=== PATIENT | male | born 1940 | race Caucasian/White ===

== ENCOUNTER 2019-02-28 07:38 | Outpatient (RCR) | payer MEDICARE, SELFPAY ==
[2019-01-18 14:11] VITALS: BMI 33.1
== END 2019-04-13 12:31 | disposition home or self-care (01) ==
LOC: ANHWOC 07:38
PROVIDERS: PCP Family Medicine; Visit Provider Family Medicine
DX: I83.029 Varicose veins of left lower extremity with ulcer of unspecified site (principal)
CPT/HCPCS: 36415; 85610; 99212; G0463

== ENCOUNTER 2019-03-05 08:50 | Outpatient (RCR) | payer MEDICARE, SELFPAY | END 2019-03-05 23:59 | disposition home or self-care (01) | LOC: ANHAUDIO 08:50 | PROVIDERS: PCP Family Medicine; Visit Provider Family Medicine | DX: Z46.1 Encounter for fitting and adjustment of hearing aid (principal) | CPT/HCPCS: 92593 ==

== ENCOUNTER 2019-04-30 07:19 | Outpatient (RCR) | payer MEDICARE, SELFPAY ==
[2019-01-31 09:25] LABS: INR 2.6; Prothrombin Time 27.3 Seconds (11.1-14.7)
[2019-03-05 08:23] LABS: INR 3.4; Prothrombin Time 33.8 Seconds (11.1-14.7)
[2019-03-19 08:27] LABS: INR 2.5; Prothrombin Time 26.9 Seconds (11.1-14.7)
[2019-04-30 10:47] LABS: INR 3.9; Prothrombin Time 37.6 Seconds (11.1-14.7)
== END 2019-05-01 23:59 | disposition home or self-care (01) ==
LOC: ANHLAB 07:19
PROVIDERS: PCP Family Medicine; Visit Provider Family Medicine
DX: Z51.81 Encounter for therapeutic drug level monitoring (principal); Z79.01 Long term (current) use of anticoagulants
CPT/HCPCS: 36415; 85610

== ENCOUNTER → 2019-05-09 11:49 | Outpatient (CLI) | payer MEDICARE, SELFPAY ==
--- NOTE | ~2019-05-09 | XR_ITS ---
EXAMINATION: XR hand LT 2V DATE: 05/09/2019 12:08 INDICATION: Left hand joint pain. Positive LEATHA. TECHNIQUE: 2 views of left hand were obtained. COMPARISON: None. FINDINGS: Bone alignment is normal. No fracture. There is moderate osteoarthritis of first carpometac arpal joint and first interphalangeal joint and mild osteoarthritis of second through fifth proximal and distal interphalangeal joints. Vascular calcifications are noted. IMPRESSION: 1. Polyarticular osteoarthritis. Reviewed, dictated and finalized at location A. ZAG STITCHER
--- NOTE | ~2019-05-09 | XR_ITS ---
EXAMINATION: XR hand RT 2V DATE: 05/09/2019 12:08 INDICATION: Positive LEATHA TECHNIQUE: Posteroanterior and lateral views of the right hand were obtained. COMPARISON: None. FINDINGS: 5 mm ulnar minus variance. There is disruption of the first and second carpal arcs at the lunotriquet ral articulation where there is a widened joint space consistent with tear of the lunotriquetral liga ment. No fracture. Polyarticular osteoarthritis, severe at the lunocapitate articulation, moderate se verity at the triscaphe and first interphalangeal joints and mild at the wrist, first carpometacarpal and multiple metacarpophalangeal and interphalangeal joints. No erosions to suggest an inflammatory arthritis. Extensive vascular calcifications. IMPRESSION: 1. Polyarticular osteoarthritis, severe at the lunocapitate articulation likely secondary to tear of the lunotriquetral ligament with disruption of the arcs of the proximal carpal row. Reviewed, dictated and finalized at location A. DOZER PRESS OPERATOR IMPRESSION: 1. Polyarticular osteoarthritis, severe at the lunocapitate articulation likely secondary to tear of the lunotriquetral ligament with disruption of the arcs o f the proximal carpal row.
== END ==
PROVIDERS: PCP Family Medicine; Visit Provider Physician Assistant
DX: R76.8 Other specified abnormal immunological findings in serum (principal); J84.9 Interstitial pulmonary disease, unspecified; M15.9 Polyosteoarthritis, unspecified
CPT/HCPCS: 73120

== ENCOUNTER 2019-08-29 07:21 | Outpatient (RCR) | payer MEDICARE, SELFPAY ==
[2019-08-29 08:29] LABS: INR 1.3; Prothrombin Time 16.2 Seconds (11.1-14.7)
== END 2019-11-27 23:59 | disposition home or self-care (01) ==
LOC: ANHLAB 07:21
PROVIDERS: PCP Family Medicine; Visit Provider Family Medicine
DX: Z51.81 Encounter for therapeutic drug level monitoring (principal); I48.91 Unspecified atrial fibrillation; Z79.01 Long term (current) use of anticoagulants
CPT/HCPCS: 36415; 85610

== ENCOUNTER 2019-09-12 07:20 | Outpatient (CLI) | payer MEDICARE, SELFPAY ==
[2019-09-16 04:53] LABS: Red Blood Cell Folate >1000 ng/mL RBC (>280)
[2019-09-17 03:47] LABS: Alkaline Phosphatase 155 U/L (35-144); Macrohepatic Isoenzymes 0 % (<=0)
== END 2019-09-12 07:21 | disposition home or self-care (01) ==
PROVIDERS: PCP Family Medicine; Visit Provider Physician Assistant
DX: D75.89 Other specified diseases of blood and blood-forming organs (principal); R74.8 Abnormal levels of other serum enzymes
CPT/HCPCS: 36415; 82607; 82747; 84075; 84080

== ENCOUNTER 2019-12-10 07:28 | Outpatient (RCR) | payer MEDICARE, SELFPAY ==
[2019-09-11 07:51] LABS: Basophils Percent Auto 0.5 % (0.2-1.2); Eosinophils Absolute Auto 0.1 K/mm3 (0-0.3); Eosinophils Percent Auto 1.9 % (0-4.4); Hematocrit 38.3 % (42.0-52.0); Hemoglobin 12.1 g/dL (14.0-18.0); Immature Granulocyte Absolute 0.03 K/mm3 (0.00-0.031); Immature Granulocyte Percent A 0.5 % (0-0.5); Lymphocytes Absolute Auto 0.51 K/mm3 (0.9-3.2); Lymphocytes Percent Auto 8.9 % (18.3-44.2); Mean Corpuscular HGB Conc 31.6 g/dl (32-36); Mean Corpuscular Hemoglobin 32.6 pg (26-34); Mean Corpuscular Volume 103.2 fl (80-100); Mean Platelet Volume 9.5 fl (7.4-10.4); Monocytes Absolute Auto 0.7 K/mm3 (0.1-0.6); Monocytes Percent Auto 11.9 % (2.6-8.5); Neutrophils Absolute Auto 4.4 K/mm3 (1.3-6.7); Neutrophils Percent Auto 76.3 % (45.5-73.1); Platelet Count Result 178 k/mm3 (150-375); Red Blood Count 3.71 M/mm3 (4.6-6.20); Red Cell Distribution Width 15.1 % (11.5-14.5); White Blood Count 5.7 K/mm3 (4.5-10.0)
[2019-09-11 08:02] LABS: Alanine Aminotransferase 27 U/L (4-50); Albumin Level 3.9 g/dL (3.5-5.1); Alkaline Phosphatase 173 U/L (38-126); Aspartate Amino Transferase 46 U/L (17-59); Bilirubin,Total 0.8 mg/dL (0.2-1.3); Blood Urea Nitrogen 25 mg/dL (9-20); Calcium 9.1 mg/dL (8.4-10.2); Carbon Dioxide 30 mmol/L (22-30); Chloride 101 mmol/L (98-107); Cholesterol 98 mg/dL (0-200); Estimated Glomerular Filt Rate > 60; Glucose 109 mg/dL (75-110); HDL Direct 25 mg/dL; Hemoglobin A1C 6.9 % (<5.7); Potassium 4.6 mmol/L (3.4-5.0); Sodium 138 mmol/L (137-145); Triglycerides 79 mg/dL (<150)
[2019-09-11 08:13] LABS: LDL Cholesterol Direct 58 mg/dL
[2019-09-11 08:31] LABS: Prostate Specific Antigen 0.2 ng/mL (< OR = 4.0)
[2019-09-11 12:00] LABS: Folic Acid > 20.0 ng/mL (2.76->20)
[2019-10-09 08:27] LABS: INR 1.4; Prothrombin Time 17.1 Seconds (11.1-14.7)
[2019-10-22 08:35] LABS: INR 1.6; Prothrombin Time 18.8 Seconds (11.1-14.7)
[2019-10-31 08:03] LABS: INR 1.7; Prothrombin Time 19.7 Seconds (11.1-14.7)
[2019-11-12 07:47] LABS: Prothrombin Time 22.3 Seconds (11.1-14.7)
[2019-12-10 08:21] LABS: INR 2.1; Prothrombin Time 22.9 Seconds (11.1-14.7)
== END 2019-12-10 23:59 | disposition home or self-care (01) ==
LOC: ANHLAB 07:28
PROVIDERS: Physician Assistant; PCP Family Medicine; Visit Provider Family Medicine
DX: Z51.81 Encounter for therapeutic drug level monitoring (principal); I48.91 Unspecified atrial fibrillation; E11.9 Type 2 diabetes mellitus without complications; E78.2 Mixed hyperlipidemia; E66.9 Obesity, unspecified; I10 Essential (primary) hypertension; Z79.01 Long term (current) use of anticoagulants; Z12.5 Encounter for screening for malignant neoplasm of prostate
CPT/HCPCS: 36415; 80053; 80061; 82607; 82746; 83036; 84153; 84443; 85025; 85610; G0103

== ENCOUNTER 2020-03-11 07:15 | Outpatient (RCR) | payer MEDICARE, SELFPAY ==
[2020-01-08 08:13] LABS: INR 1.9; Prothrombin Time 21.5 Seconds (11.1-14.7)
[2020-02-05 08:04] LABS: INR 2.4
[2020-03-11 08:03] LABS: INR 2.4; Prothrombin Time 26.6 Seconds (11.1-14.7)
== END 2020-04-07 23:59 | disposition home or self-care (01) ==
LOC: ANHLAB 07:15
PROVIDERS: PCP Family Medicine; Visit Provider Family Medicine
DX: Z51.81 Encounter for therapeutic drug level monitoring (principal); Z79.01 Long term (current) use of anticoagulants
CPT/HCPCS: 36415; 85610

== ENCOUNTER 2020-06-10 07:23 | Outpatient (RCR) | payer MEDICARE, SELFPAY ==
[2020-04-08 07:59] LABS: INR 2.5; Prothrombin Time 27.2 Seconds (11.1-14.7)
[2020-05-06 07:56] LABS: INR 2.1; Prothrombin Time 24.2 Seconds (11.1-14.7)
[2020-06-10 08:05] LABS: INR 2.1; Prothrombin Time 24.3 Seconds (11.1-14.7)
== END 2020-07-07 23:59 | disposition home or self-care (01) ==
LOC: ANHLAB 07:23
PROVIDERS: Family Provider Family Medicine; PCP Family Medicine; Visit Provider Family Medicine
DX: Z51.81 Encounter for therapeutic drug level monitoring (principal); Z79.01 Long term (current) use of anticoagulants
CPT/HCPCS: 36415; 85610

== ENCOUNTER 2020-09-09 07:14 | Outpatient (RCR) | payer MEDICARE, SELFPAY ==
[2020-07-08 08:35] LABS: INR 2.2; Prothrombin Time 25.1 Seconds (11.1-14.7)
[2020-08-05 08:23] LABS: INR 2.3; Prothrombin Time 25.5 Seconds (11.1-14.7)
[2020-09-09 08:24] LABS: INR 2.8; Prothrombin Time 30.1 Seconds (11.1-14.7)
== END 2020-10-06 23:59 | disposition home or self-care (01) ==
LOC: ANHLAB 07:14
PROVIDERS: PCP Family Medicine; Visit Provider Family Medicine
DX: Z51.81 Encounter for therapeutic drug level monitoring (principal); Z79.01 Long term (current) use of anticoagulants
CPT/HCPCS: 36415; 85610

== ENCOUNTER 2020-12-22 08:54 | Outpatient (RCR) | payer MEDICARE, SELFPAY ==
[2020-10-07 08:33] LABS: Prothrombin Time 30.3 Seconds (11.1-14.7)
[2020-11-04 08:35] LABS: INR 2.4; Prothrombin Time 25.6 Seconds (11.1-14.7)
[2020-12-08 07:56] LABS: Prothrombin Time 60.8 Seconds (11.1-14.7)
[2020-12-08 08:12] LABS: INR 7.5
[2020-12-09 08:01] LABS: Prothrombin Time 48.9 Seconds (11.1-14.7)
[2020-12-09 08:07] LABS: INR 5.6
[2020-12-10 08:26] LABS: INR 5.5
[2020-12-18 08:10] LABS: INR 1.3
[2020-12-19 10:23] LABS: INR 1.2; Prothrombin Time 15.1 Seconds (11.1-14.7)
[2020-12-22 09:39] LABS: INR 1.3; Prothrombin Time 15.7 Seconds (11.1-14.7)
== END 2021-01-05 23:59 | disposition home or self-care (01) ==
LOC: ANHLAB 08:54
PROVIDERS: PCP Family Medicine; Visit Provider Family Medicine
DX: Z51.81 Encounter for therapeutic drug level monitoring (principal); Z79.01 Long term (current) use of anticoagulants
CPT/HCPCS: 36415; 85610

== ENCOUNTER 2021-01-27 11:06 | Outpatient (CLI) | payer MEDICARE, SELFPAY ==
--- NOTE | ~2021-01-27 | XR_ITS ---
EXAMINATION: XR hip RT min 2V DATE: 01/27/2021 11:45 INDICATION: Right hip pain. TECHNIQUE: 2 views of right hip were obtained. COMPARISON: CT abdomen and pelvis 03/01/2019 FINDINGS: Bone alignment is normal. No fracture. There is serpiginous sclerosis in right femoral head , consistent with osteonecrosis. There is severe lumbar spondylosis. There is mild right hip osteoart hritis. There are dystrophic calcifications overlying the sacrum that are localized to the posterior subcutaneous fat on the prior CT. IMPRESSION: 1. Osteonecrosis of right femoral head. 2. Mild right hip osteoarthritis. Reviewed, dictated and finalized at location A. DRY OPERATOR
--- NOTE | ~2021-01-27 | XR_ITS ---
EXAMINATION: XR knee RT 3V DATE: 01/27/2021 11:45 INDICATION: Right knee pain. TECHNIQUE: 3 views of right knee were obtained. COMPARISON: None. FINDINGS: Bone alignment is normal. No fracture. There is severe osteoarthritis of lateral compartmen t and mild osteoarthritis of medial and patellofemoral compartments. There is a moderate-sized knee j oint effusion. IMPRESSION: 1. Severe right knee osteoarthritis. 2. Moderate-sized right knee joint effusion. Reviewed, dictated and finalized at location A. URER IN MARKETING
[2021-01-27 12:16] LABS: Basophils Percent Auto 0.7 % (0.2-1.2); Eosinophils Absolute Auto 0.1 K/mm3 (0-0.3); Eosinophils Percent Auto 1.2 % (0-4.4); Hematocrit 38.5 % (42.0-52.0); Hemoglobin 12.3 g/dL (14.0-18.0); Immature Granulocyte Absolute 0.04 K/mm3 (0.00-0.031); Immature Granulocyte Percent A 0.7 % (0-0.5); Lymphocytes Absolute Auto 0.38 K/mm3 (0.9-3.2); Lymphocytes Percent Auto 6.7 % (18.3-44.2); Mean Corpuscular HGB Conc 31.9 g/dl (32-36); Mean Corpuscular Hemoglobin 34.8 pg (26-34); Mean Corpuscular Volume 109.1 fl (80-100); Mean Platelet Volume 10.1 fl (7.4-10.4); Monocytes Absolute Auto 0.8 K/mm3 (0.1-0.6); Monocytes Percent Auto 14.1 % (2.6-8.5); Neutrophils Absolute Auto 4.4 K/mm3 (1.3-6.7); Neutrophils Percent Auto 76.6 % (45.5-73.1); Platelet Count Result 163 k/mm3 (150-375); Red Blood Count 3.53 M/mm3 (4.6-6.20); Red Cell Distribution Width 15.5 % (11.5-14.5); White Blood Count 5.7 K/mm3 (4.5-10.0)
[2021-01-27 12:45] LABS: Alanine Aminotransferase 21 U/L (4-50); Alkaline Phosphatase 84 U/L (38-126); Anion Gap 6 mmol/L (8-16); Aspartate Amino Transferase 39 U/L (17-59); Bilirubin,Total 0.9 mg/dL (0.2-1.3); Blood Urea Nitrogen 31 mg/dL (9-20); Calcium 9.1 mg/dL (8.4-10.2); Carbon Dioxide 31 mmol/L (22-30); Chloride 98 mmol/L (98-107); Estimated Glomerular Filt Rate 58; Glucose 108 mg/dL (65-110); Potassium 4.5 mmol/L (3.4-5.0); Sodium 135 mmol/L (137-145)
== END 2021-01-27 11:07 | disposition home or self-care (01) ==
PROVIDERS: PCP Family Medicine; Visit Provider Family Medicine
DX: I50.9 Heart failure, unspecified (principal); R52 Pain, unspecified; M17.11 Unilateral primary osteoarthritis, right knee; M25.461 Effusion, right knee; M16.11 Unilateral primary osteoarthritis, right hip; M87.851 Other osteonecrosis, right femur
CPT/HCPCS: 36415; 73502; 73562; 80053; 85025

== ENCOUNTER 2021-02-04 08:36 | Outpatient (CLI) | payer MEDICARE, SELFPAY ==
--- NOTE | 2021-02-04 08:41 | ECHO_ITS ---
Patient Info Name: Teofilo Villanueva Age: 80 years : 1940 Gender: Male Ht: 71 in Wt: 210 lbs BSA: 2.21 m2 HR: 118 bpm Technical Quality: Fair Exam Date: 02/04/2021 9:02 AM Exam Location: [facility] Patient Status: Outpatient Admit Date: 02/04/2021 Staff Ordering Physician: Ian Acharya MD Associate Curator: CASSANDRA LOVE Attending Provider: Ian Acharya MD Referring Physician: Patrizia VILLASEÑOR; Exam Type: CA echo doppler color flow Study Info Indications I10 - Essential (primary) hypertension Complete two-dimensional, color flow and Doppler transthoracic echocardiogram is performed. Summary 1. Complete two-dimensional, color flow and Doppler transthoracic echocardiogram is performed. 2. Left ventricular chamber dimension is normal. 3. Left ventricular systolic function is normal, estimated at 55-60%. 4. There is mildly increased left ventricular wall thickness. 5. The left ventricular diastolic function is indeterminate. 6. Tissue doppler is not performed. 7. Probably atrial fibrillation. 8. Right ventricular systolic function is reduced based on abnormal TAPSE 1.3 cm. 9. Left atrial chamber dimension is severely enlarged. 10. There is severe aortic valve sclerosis. 11. There is moderate to severe aortic valve stenosis based on a peak velocity of 315 cm/s, mean gradient of 22 mmHg, and aortic valve area of 0.5 cm2. 12. There is mild aortic valve regurgitation. 13. Mitral valve is not well seen. 14. The mitral valve has moderately calcified leaflets and severely calcified annulus. 15. There is moderate to severe mitral valve stenosis based on a peak gradient 30 mmHg and mean gradient 12 mmHg and valve area 0.7 cm2 by VTI. 16. There is mild mitral valve regurgitation. 17. There is mild tricuspid valve regurgitation. 18. Dilated inferior vena cava with >50% collapse upon inspiration consistent with elevated right atrial pressure, 10 mmHg. Left Ventricle Tissue doppler is not performed. Probably atrial fibrillation. Left ventricular chamber dimension is normal. Left ventricular systolic function is normal, estimated at 55-60%. There is mildly increased left ventricular wall thickness. The left ventricular diastolic function is indeterminate. Right Ventricle Right ventricular systolic function is reduced based on abnormal TAPSE 1.3 cm. Right ventricular chamber dimension is not well visualized. Left Atria Left atrial chamber dimension is severely enlarged. Right Atria Right atrial chamber dimension is normal. Aortic Valve There is moderate to severe aortic valve stenosis based on a peak velocity of 315 cm/s, mean gradient of 22 mmHg, and aortic valve area of 0.5 cm2. The aortic valve is probable trileaflet. There is severe aortic valve sclerosis. There is mild aortic valve regurgitation. Pulmonic Valve There is no pulmonic regurgitation. Mitral Valve The mitral valve has moderately calcified leaflets and severely calcified annulus. There is moderate to severe mitral valve stenosis based on a peak gradient 30 mmHg and mean gradient 12 mmHg and valve area 0.7 cm2 by VTI. Mitral valve is not well seen. There is mild mitral valve regurgitation. Tricuspid Valve RVSP is not calculated due to an inadequate TR jet. There is mild tricuspid valve regurgitation. Pericardium/Pleural There is no pericardial effusion. Inferior Vena Cava Dilated inferior vena cava with >50% collapse upon inspiration consistent with elevated right atrial pressu
== END 2021-02-04 08:37 | disposition home or self-care (01) ==
LOC: ANHCARD 08:37
PROVIDERS: PCP Family Medicine; Visit Provider Family Medicine
DX: I11.0 Hypertensive heart disease with heart failure (principal); I35.1 Nonrheumatic aortic (valve) insufficiency; I34.0 Nonrheumatic mitral (valve) insufficiency; I34.2 Nonrheumatic mitral (valve) stenosis; I36.1 Nonrheumatic tricuspid (valve) insufficiency; I35.0 Nonrheumatic aortic (valve) stenosis
CPT/HCPCS: 93306

== ENCOUNTER 2021-04-06 07:19 | Outpatient (RCR) | payer MEDICARE, SELFPAY ==
[2021-01-06 08:21] LABS: INR 2.7
[2021-02-03 07:53] LABS: INR 3.3; Prothrombin Time 32.8 Seconds (11.1-14.7)
[2021-03-02 08:13] LABS: INR 3.7; Prothrombin Time 35.3 Seconds (11.1-14.7)
[2021-03-17 08:28] LABS: Prothrombin Time 76.5 Seconds (11.1-14.7)
[2021-03-17 09:01] LABS: INR 10.1
[2021-03-31 08:12] LABS: Prothrombin Time 57.3 Seconds (11.1-14.7)
[2021-03-31 09:41] LABS: INR 6.9
[2021-04-02 07:41] LABS: INR 4.2; Prothrombin Time 39.4 Seconds (11.1-14.7)
[2021-04-03 08:05] LABS: Prothrombin Time 37.4 Seconds (11.1-14.7)
[2021-04-06 08:30] LABS: Prothrombin Time 47.7 Seconds (11.1-14.7)
[2021-04-06 11:11] LABS: INR 5.4
== END 2021-04-06 23:59 | disposition home or self-care (01) ==
LOC: ANHLAB 07:19
PROVIDERS: PCP Family Medicine; Visit Provider Family Medicine
DX: I48.91 Unspecified atrial fibrillation (principal)
CPT/HCPCS: 36415; 85610

== ENCOUNTER 2021-04-08 01:00 | Day surgery (SDC) | payer MEDICARE, SELFPAY ==
[2021-04-07 13:15] VITALS: BP 109/77; RESP 20; O2SAT 96
[2021-04-07 13:35] VITALS: BMI 27.9
--- NOTE | 2021-04-07 15:01 | PC.NURSE ---
HISTORY CARD CLERK notified of pt holding Coumadin prior to procedure scheduled tomorrow.
--- NOTE | 2021-04-08 10:56 | WPDANESEPPF ---
Anes - Initial Pre Proc Eval Procedure: Operation Date: 04/08/21 14:00 Proposed Procedures p Trans Esophageal Echo - Adeel Bansal MD Date/Time: 04/08/21 10:56 Surgeon: Adeel Bansal MD Pre Op Diagnosis: [place] of Prosthetic Aortic valve Patient Data Age: 80 Gender: M Height: 1.8 m Weight: 90.9 kg Allergies Allergy/AdvReac Type Severity Reaction Status Date / Time No Known Allergies Allergy Verified 04/08/21 13:04 Home Medications Medication Instructions Recorded Confirmed Type Multi-Day Plus Minerals 1 tablet PO DAILY 01/18/19 04/08/21 History azathioprine 50 mg tablet 100 mg PO .COMPLEX tablet 09/03/19 04/08/21 History warfarin 5 mg tablet 5 mg PO DAILY #90 tablet 05/19/20 04/08/21 Rx metoprolol tartrate 100 mg tablet See Rx Instructions .ROUTE 07/28/20 04/08/21 Rx .COMPLEX #135 tablet simvastatin 40 mg tablet See Rx Instructions .ROUTE 08/13/20 04/08/21 Rx .COMPLEX #90 tablet pantoprazole 40 mg tablet,delayed See Rx Instructions .ROUTE 08/25/20 04/08/21 Rx release .COMPLEX #90 tablet furosemide 20 mg tablet 20 mg PO QAM #30 tablet 01/26/21 04/08/21 Rx spironolactone 25 mg tablet 25 mg PO DAILY #30 tablet 01/26/21 04/08/21 Rx warfarin 2.5 mg PO DAILY 04/08/21 04/08/21 History Patient hx anesthesia problems: none Family hx anesthesia problems: none Results Review: All pre-operative results and documents have been reviewed as part of the pre-operative evaluation. [facility] Past Medical History Medical History Arthritis BCC (basal cell carcinoma of skin) CHF (congestive heart failure) DVT (deep venous thrombosis) Hemorrhoids HLD (hyperlipidemia) HTN (hypertension) Myocardial infarction Nonrheumatic aortic valve disorder, unspecified Rectal polyp Shingles Wears hearing aid in both ears Surgical History Surgical History H/O aortic valve replacement 2010- 25mm equine AVR H/O bilateral cataract extraction H/O inguinal hernia repair H/O lithotripsy History of bilateral knee arthroplasty History of hip replacement History of total hip replacement Hx of appendectomy Hx of CABG Hx of tonsillectomy Family History Family History Mother Diabetes mellitus Family history of cardiovascular disease Acute myocardial infarction Father Family history of cardiovascular disease Acute myocardial infarction Social History Social History Alcohol intake: never Gender identity (if verbalized by the patient): Male Sexual Orientation (if Verbalized by the Patient): Straight or Heterosexual Anes - Eval Final PreProcedure Day of Procedure 04/08/21 10:56 Patient weight: overweight Heart: regular rate and rhythm Lungs: clear to auscultation and normal air movement Airway: Mallampati scale class II Neurological: alert and oriented Last oral intake: >/= 8 hours ASA classification: IV Emergent: no Anesthetic plan: proceed Anesthesia type and monitoring: general GIVS Results Review: All pre-operative results and documents have been reviewed as part of the pre-operative evaluation. Informed Consent: The patient's anesthetic plan and its attendant risks and benefits were discussed with the patient/family/POA. Questions were solicited and answers provided to the satisfaction of the patient/family/POA.
[2021-04-08 12:45] VITALS: BMI 30.6
[2021-04-08 12:50] VITALS: BP 147/84; PULSE 86; RESP 16; TEMP 36.6; O2SAT 100
[2021-04-08 13:05] LABS: INR 3.5; Prothrombin Time 34.4 Seconds (11.1-14.7)
--- NOTE | 2021-04-08 14:10 | WPDHPUPDATE1 ---
History and Physical Update Update Date/Time: 04/08/21 14:10 History and Physical has been reviewed, including an updated exam of the patient. There are NO changes in the patient's condition. Risks, benefits, and alternatives have been discussed and questions answered. Patient agrees to proceed with procedure.
--- NOTE | 2021-04-08 14:10 | WPDTEECHO ---
[facility] TransEsophageal Echocardiogram Date of procedure: 04/08/21 Procedure Type: transesophageal echocardiogram Diagnosis: prosthetic valve dysfunction, mitral stenosis, SOB Indications: prosthetic valve dysfunction, mitral stenosis, SOB Image Quality: acceptable Findings: Brief history present illness: Patient is a pleasant 80 yo WM with a history of interstitial lung disease, atrial fibrillation, bioprosthetic aortic valve replacement 25 mm in 2010, 1 vessel CABG SVG to RCA from moderate stenosis, pulmonary hypertension, hypertension worsening complaints of edema, there is some dyspnea and fatigue referred for transesophageal echocardiogram for further evaluation. Procedure in detail: After verbal and written informed consent was obtained the patient risks, benefits, and alternatives explained in detail the patient agreed to proceed with the plan of care as outlined above. The patient was evaluated at bedside in the gastroenterology procedure room. The posterior oropharynx, neck, and jaw angle all within normal limits on examination. Lungs were clear to auscultation. See pre-sedation note for further details The patient was then placed in the appropriate 30 to 45 degree angle supine position at a slight left lateral decubitus position. Patient was monitored throughout the study with telemetry, oxygen saturation, end-tidal CO2 monitoring, blood pressure, heart rate, and respirations. The posterior hypopharynx was then locally anesthetized using repeated administration of Hurricaine spray administered by Anesthesiology. After local anesthetic of the posterior hypopharynx was achieved and the oral bite block placed, sedation was administered by Anesthesiology. After confirmation of adequate sedation, the transesophageal echocardiogram probe was advanced through the oral bite block into the posterior hypopharynx and into the esophagus easily and without complication. Multiple, multiplanar echocardiographic images were obtained in multiple standard re- projections. Pulsed wave, continuous-wave, and color-flow Doppler were utilized in conjunction with this study. At the conclusion of the study, the transesophageal echocardiogram probe was removed easily and without complication. The patient tolerated the procedure well without difficulty. Patient was in atrial fibrillation throughout the study. Sedation/Anesthesia administration: Patient reports no prior problems with sedation/anesthesia. Please see Anesthesiology documentation for further details and sedation administration protocol. FINDINGS: LEFT VENTRICLE: Size and systolic function were within normal limits without wall motion abnormalities with ejection fraction of 55%. RIGHT VENTRICLE: Normal size with mild systolic dysfunction. LEFT ATRIUM: Severely enlarged. RIGHT ATRIUM: Normal size. INTERATRIAL SEPTUM: Interatrial septum is anatomically normal without evidence of shunt with color-flow Doppler nor with injection of agitated saline. MITRAL VALVE: Mitral valve is moderately calcified with moderate to severe leaflet restriction. Mild to moderate regurgitation with several smaller regurgitant jets. Mean gradient averaged 7-8mmHg and MVA 1.9cm2 consistent moderate stenosis AORTIC VALVE: Bioprosthetic valve appreciated in the aortic position with moderate to severe leaflet calcification and moderate to severe leaflet restriction. Difficult to clearly determine severity of aortic regurgitation although at least mild present. TRICUSPID VALVE: The tricuspid valve is anatomically normal with normal leaflet excursion with mild to moderate regurgitation identified. No mobile elements identified. PULMONIC VALVE: Pulmonic valve was not well visualized. LEFT ATRIAL APPENDAGE: Anatomically normal structure with prominent pectinate muscles without thrombus or vegetation identified. Left atrial appendage velocities averaged approximately 40 centimeters/second. LEFT UPPER PULMONARY VEIN: Left u
[2021-04-08 14:41] VITALS: BP 114/68; PULSE 83; RESP 12; O2SAT 98
[2021-04-08 14:56] VITALS: BP 127/63; RESP 12; O2SAT 100
[2021-04-08 15:15] VITALS: BP 109/77; PULSE 84; RESP 20; TEMP 36.3; O2SAT 99
--- NOTE | 2021-04-08 15:26 | WPDMODSED ---
Moderate Sedation Note-Pt Data Patient Data Diagnosis: Prosthetic aortic valve dysfunction, mitral stenosis Present Complaint: Shortness of breath Procedure to be performed/Plan: Transesophageal echocardiogram History and physical update: Patient is a very pleasant 80-year-old male with a history of 1 vessel bypass SVG to RCA, 25 mm declined aortic valve replacement 2010 interstitial lung disease, atrial fibrillation, hypertension, pulmonary hypertension complaining of progressive shortness of breath, fatigue found to have significant aortic valve prosthetic dysfunction and moderate mitral stenosis referred for transesophageal echocardiogram further clarification and valve function. Impression/plan of care: CAD status post CABG Atrial fibrillation Bioprosthetic aortic valve stenosis Mitral stenosis Interstitial lung disease Transesophageal echocardiogram to assess function and anatomy of bioprosthetic aortic valve and re-evaluation of mitral stenosis. Recommendations to follow. Allergies Allergy/AdvReac Type Severity Reaction Status Date / Time No Known Allergies Allergy Verified 04/08/21 13:04 Home Medications Medication Instructions Recorded Confirmed Type [id number] 1 tablet PO DAILY 01/18/19 04/08/21 History [Multi-Day Plus Minerals] azathioprine 50 mg tablet 100 mg PO .COMPLEX tablet 09/03/19 04/08/21 History warfarin 5 mg tablet 5 mg PO DAILY #90 tablet 05/19/20 04/08/21 Rx metoprolol tartrate 100 mg tablet See Rx Instructions .ROUTE 07/28/20 04/08/21 Rx .COMPLEX #135 tablet simvastatin 40 mg tablet See Rx Instructions .ROUTE 08/13/20 04/08/21 Rx .COMPLEX #90 tablet pantoprazole 40 mg tablet,delayed See Rx Instructions .ROUTE 08/25/20 04/08/21 Rx release .COMPLEX #90 tablet furosemide 20 mg tablet 20 mg PO QAM #30 tablet 01/26/21 04/08/21 Rx spironolactone 25 mg tablet 25 mg PO DAILY #30 tablet 01/26/21 04/08/21 Rx warfarin 2.5 mg PO DAILY 04/08/21 04/08/21 History Current Medications: Active Medications Lactated Ringer's (Lr - Lactated Ringers Iv) 1,000 mls @ 150 mls/hr IV CONT .[id number] [facility] Sedation/Anesthesia: No previous sedation/anesthesia problems (including family history). [facility] Past Medical History Medical History Arthritis BCC (basal cell carcinoma of skin) CHF (congestive heart failure) DVT (deep venous thrombosis) Hemorrhoids HLD (hyperlipidemia) HTN (hypertension) Myocardial infarction Nonrheumatic aortic valve disorder, unspecified Rectal polyp Shingles Wears hearing aid in both ears Surgical History Surgical History H/O aortic valve replacement 2011- 25mm equine AVR H/O bilateral cataract extraction H/O inguinal hernia repair H/O lithotripsy History of bilateral knee arthroplasty History of hip replacement History of total hip replacement Hx of appendectomy Hx of CABG Hx of tonsillectomy Family History Family History Mother Diabetes mellitus Family history of cardiovascular disease Acute myocardial infarction Father Family history of cardiovascular disease Acute myocardial infarction Social History Social History Alcohol intake: never Gender identity (if verbalized by the patient): Male Sexual Orientation (if Verbalized by the Patient): Straight or Heterosexual Mod Sed Physical Exam Physical Exam Pre Procedural Exam: Normal: Appearance, Eyes, Ears, Nose, Neck (Supple normal range of motion), Throat (Posterior hypopharynx clear, nonerythematous), Airway (Normal anatomy, no obstruction), Lungs (Diminished breath sounds diffusely), Heart Size, Heart Rate, Neuro Exam, Abdomen, Liver and Skin and Variation: Heart Rhythm (Irregular irregular, systolic murmur) and Extremities (1+edema) Hours since solid foods
[2021-04-08 15:30] VITALS: BP 131/71; PULSE 84; RESP 20; O2SAT 97
--- NOTE | 2021-04-08 15:33 | SUR.PHASEII ---
Pt tolerated OJ well and denies any throat numbness or discomfort
[2021-04-08 15:45] VITALS: BP 143/62; PULSE 85; O2SAT 95
--- NOTE | 2021-04-08 16:09 | SUR.PHASEII ---
INR was 3.5 today, verified resuming coumadin without change and INR in [address] Bansal.
--- NOTE | 2021-04-08 16:31 | SUR.PHASEII ---
1621. Discharge instructions read and given to pt. Pt states understanding. 1628. Pt transported to 's vehicle by WC. This RN gave instructions to about coumadin and other medcation, inr, activity, post-sedation safety, bleeding risk, iv site care.
== END 2021-04-08 16:28 | disposition home or self-care (01) ==
PROVIDERS: PCP Family Medicine; Visit Provider Internal Medicine Cardiovascular Disease
PROC: (CPT 93312; principal; 2021-04-08 14:00)
DX: T82.09XA Other mechanical complication of heart valve prosthesis, initial encounter (principal); I35.0 Nonrheumatic aortic (valve) stenosis; I05.2 Rheumatic mitral stenosis with insufficiency; I36.1 Nonrheumatic tricuspid (valve) insufficiency; I48.91 Unspecified atrial fibrillation; J84.9 Interstitial pulmonary disease, unspecified; Z95.1 Presence of aortocoronary bypass graft; R06.02 Shortness of breath; Y83.8 Other surgical procedures as the cause of abnormal reaction of the patient, or of later complication, without mention of misadventure at the time of the procedure; I11.0 Hypertensive heart disease with heart failure; I50.9 Heart failure, unspecified; E78.5 Hyperlipidemia, unspecified; I25.2 Old myocardial infarction; Z86.718 Personal history of other venous thrombosis and embolism; Z79.01 Long term (current) use of anticoagulants
CPT/HCPCS: 36415; 85610; 93312; 93320; 93325; J2704; J7040

== ENCOUNTER 2021-04-10 07:15 | Outpatient (CLI) | payer MEDICARE, SELFPAY ==
[2021-04-10 07:49] LABS: INR 3.6
== END 2021-04-10 07:16 | disposition home or self-care (01) ==
PROVIDERS: PCP Family Medicine; Visit Provider Family Medicine
DX: I48.91 Unspecified atrial fibrillation (principal); Z79.01 Long term (current) use of anticoagulants
CPT/HCPCS: 36415; 85610

== ENCOUNTER 2021-07-06 07:22 | Outpatient (RCR) | payer MEDICARE, SELFPAY ==
[2021-04-14 11:10] LABS: Basophils Percent Auto 0.5 % (0.2-1.2); Eosinophils Absolute Auto 0.1 K/mm3 (0-0.3); Eosinophils Percent Auto 1.2 % (0-4.4); Hematocrit 35.9 % (42.0-52.0); Hemoglobin 11.7 g/dL (14.0-18.0); Immature Granulocyte Absolute 0.02 K/mm3 (0.00-0.031); Immature Granulocyte Percent A 0.3 % (0-0.5); Lymphocytes Absolute Auto 0.41 K/mm3 (0.9-3.2); Lymphocytes Percent Auto 6.8 % (18.3-44.2); Mean Corpuscular HGB Conc 32.6 g/dl (32-36); Mean Corpuscular Hemoglobin 34.2 pg (26-34); Mean Platelet Volume 9.9 fl (7.4-10.4); Monocytes Absolute Auto 0.9 K/mm3 (0.1-0.6); Monocytes Percent Auto 14.5 % (2.6-8.5); Neutrophils Absolute Auto 4.6 K/mm3 (1.3-6.7); Neutrophils Percent Auto 76.7 % (45.5-73.1); Platelet Count Result 149 k/mm3 (150-375); Red Blood Count 3.42 M/mm3 (4.6-6.20); Red Cell Distribution Width 15.7 % (11.5-14.5)
[2021-04-14 11:21] LABS: Prothrombin Time 37.6 Seconds (11.1-14.7)
[2021-04-20 11:52] LABS: INR 2.4; Prothrombin Time 25.3 Seconds (11.1-14.7)
[2021-04-23 08:02] LABS: INR 2.4; Prothrombin Time 25.9 Seconds (11.1-14.7)
[2021-07-06 08:02] LABS: INR 1.6; Prothrombin Time 18.1 Seconds (11.1-14.7)
== END 2021-07-13 23:59 | disposition home or self-care (01) ==
LOC: ANHLAB 07:22
PROVIDERS: PCP Family Medicine; Visit Provider Family Medicine
DX: Z51.81 Encounter for therapeutic drug level monitoring (principal); I48.91 Unspecified atrial fibrillation; Z79.01 Long term (current) use of anticoagulants
CPT/HCPCS: 36415; 85025; 85610

== ENCOUNTER 2021-07-20 07:12 | Outpatient (RCR) | payer MEDICARE, SELFPAY ==
[2021-07-20 08:08] LABS: INR 1.8; Prothrombin Time 20.2 Seconds (11.1-14.7)
== END 2021-10-18 23:59 | disposition home or self-care (01) ==
LOC: ANHLAB 07:12
PROVIDERS: PCP Family Medicine; Visit Provider Family Medicine
DX: Z51.81 Encounter for therapeutic drug level monitoring (principal); I48.91 Unspecified atrial fibrillation; Z79.01 Long term (current) use of anticoagulants
CPT/HCPCS: 36415; 85610

== ENCOUNTER 2021-08-12 08:54 | Inpatient (IN) | payer MEDICARE, SELFPAY ==
[2021-08-12] VITALS (18 sets, daily range): BP systolic 107–126; BP diastolic 51–98; PULSE 82–121; RESP 18–43; TEMP 36.2–36.8; O2SAT 84–99; BMI 29.5
--- NOTE | ~2021-08-12 | US_ITS ---
EXAMINATION: US venous doppler [facility] DATE: 08/13/2021 15:45 INDICATION: Lower limb swelling. TECHNIQUE: Grayscale ultrasound images without and with compression and Doppler ultrasound images of the bilateral lower extremity veins were obtained. COMPARISON: None. FINDINGS: The visualized portions of right common femoral vein, profunda (deep) femoral vein, femoral vein, pop liteal vein, peroneal veins, posterior tibial veins, and greater saphenous vein outflow are patent. T here is a moderate-sized Clark's cyst. The visualized portions of left common femoral vein, profunda femoral vein, femoral vein, and greater saphenous vein outflow are patent. There is thrombus in left popliteal, posterior tibial, and perone al veins. IMPRESSION: 1. Deep vein thrombosis involving left popliteal, posterior tibial, and peroneal veins. 2. Moderate-sized right Clark's cyst. Reviewed, dictated and finalized at location A. IMPRESSION: 1. Deep vein thrombosis involving left popliteal, posterior tibial, and perone al veins. 2. Moderate-sized right Clark's cyst.
--- NOTE | ~2021-08-12 | XR_ITS ---
EXAMINATION: XR chest 1V portable DATE: 08/12/2021 09:25 INDICATION: Shortness of breath. TECHNIQUE: A single frontal view of the chest was obtained. COMPARISON: Chest 2 views 06/05/2013, CT abdomen and pelvis 03/01/2019 FINDINGS: There are airspace opacities in all left lung zones with a midlung zone predominance. No pl eural effusion or pneumothorax. Cardiomegaly is noted. There are changes of aortic valve replacement. IMPRESSION: 1. Airspace opacities in left lung, consistent with pneumonia. 2. Cardiomegaly. Reviewed, dictated and finalized at location A.
--- NOTE | ~2021-08-12 | CT_ITS ---
EXAMINATION: CTA chest PE protocol DATE: 08/13/2021 16:25 INDICATION: Shortness of breath, COVID 19 pneumonia TECHNIQUE: Computed tomography angiography (CTA) of the chest was performed with 100 mL Omnipaque-350 intravenous contrast timed to evaluate the pulmonary arteries. Coronal maximum intensity projection 3D-reconstructions were created by the technologist. The dose-length product (DLP) was 412.26 mGy-cm. Automated exposure control and iterative reconstruction technique were employed. COMPARISON: 11/06/2018 FINDINGS: The pulmonary arteries are well-opacified. Respiratory motion artifact significantly limits the examination. There are pulmonary emboli in the right lower lobe. There are patchy opacities of t he lingula and lower lobes. Small pleural effusions are present, left greater than right. Cardiomegal y is noted. There are changes of endoluminal aortic valve replacement. There is mild mediastinal lymp hadenopathy. There is nodularity of the liver surface, consistent with cirrhosis. There is a 2.7 cm c yst in the partially imaged left kidney. There is severe thoracic spondylosis. IMPRESSION: 1. Pulmonary emboli of the right lower lobe. 2. Airspace opacities of the lingula and lower lobes, consistent with COVID 19 pneumonia. 3. Mediastinal lymphadenopathy, likely reactive. 4. Cardiomegaly. These findings were discussed with Jody Negro RN at 1645 hours on 08/13/2021. Reviewed, dictated and finalized at location F.
--- NOTE | 2021-08-12 09:02 | ECG_ITS ---
Measurements Intervals [place] Rate: 112 P: [place]: 0 QRS: -12 QRSD: 100 T: 60 QT: 322 QTc: 441 Interpretive Statements PROBABLE SINUS TACHYCARDIA WITH FREQUENT PREMATURE ATRIAL CONTRACTIONS BASELINE ARTIFACT LOW QRS VOLTAGE IN EXTREMITY LEADS [QRS DEFLECTION < 0.5 mV IN LIMB LEADS] MODERATE ST DEPRESSION [0.05+ mV ST DEPRESSION] ABNORMAL ECG NO PREVIOUS ECG AVAILABLE FOR COMPARISON Electronically Signed On 08-12-2021 11:39:56 CDT by Adeel Bansal M.D.
[2021-08-12 09:12] LABS: Basophils Percent Auto 0.4 % (0.2-1.2); Eosinophils Percent Auto 0.4 % (0-4.4); Hemoglobin 10.4 g/dL (14.0-18.0); Immature Granulocyte Absolute 0.05 K/mm3 (0.00-0.031); Immature Granulocyte Percent A 0.7 % (0-0.5); Lymphocytes Absolute Auto 0.26 K/mm3 (0.9-3.2); Lymphocytes Percent Auto 3.7 % (18.3-44.2); Mean Corpuscular HGB Conc 30.6 g/dl (32-36); Mean Corpuscular Hemoglobin 32.1 pg (26-34); Mean Corpuscular Volume 104.9 fl (80-100); Mean Platelet Volume 10.2 fl (7.4-10.4); Monocytes Absolute Auto 0.6 K/mm3 (0.1-0.6); Monocytes Percent Auto 8.6 % (2.6-8.5); Neutrophils Percent Auto 86.2 % (45.5-73.1); Platelet Count Result 136 k/mm3 (150-375); Red Blood Count 3.24 M/mm3 (4.6-6.20); Red Cell Distribution Width 16.8 % (11.5-14.5)
--- NOTE | 2021-08-12 09:23 | ED.GENADULT ---
HPI - General Adult General Chief complaint: Shortness of Breath/Dyspnea Stated complaint: sob Time Seen by Provider: 08/12/21 08:57 History of Present Illness HPI narrative: Patient presents to emergency department from home for shortness of breath. Patient states has been feeling more short of breath since last night. States that shortness of breath is worse with exertion states that he did test positive for COVID 19 with an at-home test on 04 August he denies any fevers or chills chest pain abdominal pain nausea vomiting or any other symptoms. Patient does have a history of CHF and is followed by Dr. Bansal Related Data Home Medications Medication Instructions Recorded Confirmed multivit with minerals-iron 18 1 tablet PO DAILY 01/18/19 07/07/21 mg-folic ac 400 mcg-vit K 25 mcg tablet (Multi-Day Plus Minerals) azathioprine 100 mg tablet 100 mg PO BID 07/07/21 07/07/21 metoprolol tartrate 50 mg tablet 50 mg PO BID 07/07/21 07/07/21 ticagrelor 90 mg tablet (Brilinta) 90 mg PO Q12H 07/07/21 07/07/21 warfarin 2.5 mg tablet See Rx Instructions .Route .COMPLEX 07/07/21 07/07/21 warfarin 5 mg tablet 5 mg PO DAILY 07/07/21 07/07/21 Allergies Allergy/AdvReac Type Severity Reaction Status Date / Time No Known Allergies Allergy Verified 08/12/21 09:10 Review of Systems Review of Systems: Gen.: Denies fevers or chills ENT: Denies congestion Respiratory: See HPI CV: Denies chest pain or palpitations GI: Denies abdominal pain nausea, emesis or diarrhea Musculoskeletal: Denies back pain or muscle pain Neuro: Denies numbness, tingling, weakness or focal weakness Skin: Denies rash Except as documented, all other systems reviewed and negative [facility] Past Medical History Medical History Arthritis BCC (basal cell carcinoma of skin) CHF (congestive heart failure) DVT (deep venous thrombosis) Hemorrhoids HLD (hyperlipidemia) HTN (hypertension) Myocardial infarction Nonrheumatic aortic valve disorder, unspecified Rectal polyp Shingles Wears hearing aid in both ears Surgical History Surgical History H/O aortic valve replacement 2011- 25mm equine AVR H/O bilateral cataract extraction H/O inguinal hernia repair H/O lithotripsy History of bilateral knee arthroplasty History of hip replacement History of total hip replacement Hx of appendectomy Hx of CABG Hx of tonsillectomy Family History Family History Mother Diabetes mellitus Family history of cardiovascular disease Acute myocardial infarction Father Family history of cardiovascular disease Acute myocardial infarction Social History Social History Smoking status: Former smoker Tobacco type: cigars Additional smoking assessment comments: smoked 3-4 cigars per day Alcohol intake: never Gender identity (if verbalized by the patient): Male Sexual Orientation (if Verbalized by the Patient): Straight or Heterosexual Exam Narrative: APPEARANCE: No acute distress, nontoxic, resting in bed EYES: EOMI HEENT: Normocephalic, atraumatic, OMM RESPIRATORY: No respiratory distress Clear to auscultation bilaterally with no rhonchi wheezing or rales. CARDIOVASCULAR: Irregular irregular without murmurs rubs or gallops. ABDOMINAL: Soft, nontender, nondistended, no rebound or guarding MUSCULOSKELETAl: Moves all extremities. No clubbing, cyanosis 3+ edema bilateral lower extremities NEURO: Awake and alert. Following commands, speech normal, no focal deficits SKIN:: Warm, dry. No rashes lesions or abrasions PSYCHIATRIC: Normal affect/mood, Course Course Emergency Course: Discussed Dr. Gary agrees with admission Discussed with patient and family results of workup and diagnosis. Discussed need for admission. Patient and family understand a
[2021-08-12 09:29] LABS: Alanine Aminotransferase 23 U/L (6-50); Albumin Level 3.3 g/dL (3.5-5.1); Alkaline Phosphatase 84 U/L (38-126); Anion Gap 6 mmol/L (8-16); Aspartate Amino Transferase 38 U/L (17-59); Bilirubin,Total 1.3 mg/dL (0.2-1.3); Blood Urea Nitrogen 36 mg/dL (9-20); Calcium 8.3 mg/dL (8.4-10.2); Carbon Dioxide 27 mmol/L (22-30); Chloride 102 mmol/L (98-107); Estimated CRCL calculation 43 ml/min; Estimated Glomerular Filt Rate 53; Glucose 191 mg/dL (65-110); Potassium 4.4 mmol/L (3.4-5.0); Sodium 135 mmol/L (137-145)
[2021-08-12 09:43] LABS: INR 2.5
[2021-08-12 09:44] LABS: Partial Thromboplastin Time 57.7 SECONDS (22.3-36.8)
[2021-08-12 09:49] LABS: Hypochromasia 1+ (NORMAL); Platelet Estimate Adequate (Adequate); Poikilocytosis 1+ (NORMAL)
[2021-08-12 09:53] LABS: NT Pro B Type Natriuretic Pept 2180 pg/mL (5-100); Troponin I 0.024 ng/mL (0.000-0.034)
[2021-08-12 10:12] LABS: SARS-CoV-2 RNA PCR Positive
--- NOTE | 2021-08-12 13:45 | PM.IMHP ---
H&P: HPI History of Present Illness Date/Time: 08/12/21 13:45 Chief Complaint: Shortness of breath. 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 He and his tested positive for COVID 19 on at home test on August 04 and he has been doing okay with the exception of progressive dyspnea, generalized malaise, and cough productive of brownish still sputum. Over the past 2 days his shortness of breath has gotten much worse and he decided to come in for evaluation. Vital signs were stable on arrival to the ER today. White blood cell count was 7.0 and SARS-CoV-2 by PCR was indeed positive. Chest x-ray showed airspace opacities in left lung consistent with pneumonia and he is being admitted in this setting. At the time my evaluation he is sitting on the couch in the room and he is in good spirits and appears to be in no distress. He has no specific complaints at this time and he denies fever, chills, sweats, headache, sinus congestion, sore throat, chest pain, pleuritic pain, orthopnea, nausea, vomiting, and diarrhea. Review of Systems Review of Systems: Twelve systems were reviewed. Patient endorses chronic dyspnea on exertion worse the past couple of days. He has chronic lower extremity edema which is unchanged. Except as documented, all other systems were reviewed and are negative. [facility] Past Medical History Medical History (Updated 08/12/21 @ 15:47 by Jessie Lal PA-C) Arthritis Basal cell carcinoma Chronic anticoagulation Congestive heart failure Coronary artery disease Deep venous thrombosis Hemorrhoids Hyperlipidemia Hypertension Mitral stenosis Severe mitral stenosis on echocardiogram in June 2021. Myocardial infarction Nonrheumatic aortic valve disorder, unspecified Status post TAVR with severe bioprosthetic aortic stenosis. Paroxysmal atrial fibrillation Peptic ulcer disease Rectal polyp Rheumatoid arthritis Shingles Wears hearing aid in both ears Surgical History Surgical History (Updated 08/12/21 @ 15:41 by Jessie Lal PA-C) History of aortic valve replacement (2010) 25 mm equine in 2010. Status post TAVR in May 2021. History of appendectomy History of bilateral cataract extraction History of bilateral knee arthroplasty History of cardiac catheterization History of coronary artery bypass graft History of hip replacement History of inguinal hernia repair History of lithotripsy History of tonsillectomy Family History Family History Mother Diabetes mellitus Family history of cardiovascular disease Acute myocardial infarction Father Family history of cardiovascular disease Acute myocardial infarction Social History Social History (Updated 08/12/21 @ 15:41 by Jessie Lal PA-C) Social History: Surrogate decision maker: Sandra Villanueva, . Code status: Full code. Smoking status: Former smoker Additional smoking assessment comments: Smoked 3 to 4 cigars per day. 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 Spiritual care concerns: No Meds Home Medications and Allergies Home Medications Medication Instructions Recorded Confirmed Type multivit with minerals-iron 18 1 tablet PO DAILY 01/18/19 08/12/21 History mg-folic ac 400 mcg-vit K 25 mcg tablet (Multi-Day Plus Minerals) pantoprazole 40 mg tablet,delayed See Rx Instructions .Route 08/25/20 08/12/21 Rx release .COMPLEX #90 tabs warfarin 5 mg tablet See Rx Instructions PO DAILY #30 05/07/21 06/30/21 Rx tabs azathioprine 100 m
[2021-08-12 15:30] LABS: CRP 8.5 mg/dL (<1.0); Lactate Dehydrogenase 824 U/L (313-618)
[2021-08-12] MEDS: REMDESIVIR 200 MG/NS 250 ML 200 MG/250 ML BAG 250 MG IVPB (16:22)
[2021-08-12 16:29] LABS: Procalcitonin 0.1 ng/mL
[2021-08-12 17:47] LABS: Hemoglobin A1C 6.5 % (<5.7)
[2021-08-12] MEDS: METOPROLOL TARTRATE 25 MG TABLET PO (20:38)
[2021-08-13 03:33] VITALS: BP 119/62; PULSE 112; RESP 20; TEMP 36.7; O2SAT 91
[2021-08-13 06:44] LABS: Basophils Percent Auto 0.5 % (0.2-1.2); Eosinophils Absolute Auto 0.1 K/mm3 (0-0.3); Eosinophils Percent Auto 0.9 % (0-4.4); Hemoglobin 10.4 g/dL (14.0-18.0); Immature Granulocyte Absolute 0.05 K/mm3 (0.00-0.031); Immature Granulocyte Percent A 0.8 % (0-0.5); Lymphocytes Absolute Auto 0.28 K/mm3 (0.9-3.2); Lymphocytes Percent Auto 4.2 % (18.3-44.2); Mean Corpuscular HGB Conc 31.5 g/dl (32-36); Mean Corpuscular Hemoglobin 32.5 pg (26-34); Mean Corpuscular Volume 103.1 fl (80-100); Mean Platelet Volume 10.5 fl (7.4-10.4); Monocytes Absolute Auto 0.9 K/mm3 (0.1-0.6); Monocytes Percent Auto 13.3 % (2.6-8.5); Neutrophils Absolute Auto 5.3 K/mm3 (1.3-6.7); Neutrophils Percent Auto 80.3 % (45.5-73.1); Platelet Count Result 125 k/mm3 (150-375); White Blood Count 6.6 K/mm3 (4.5-10.0)
[2021-08-13 06:56] LABS: INR 2.3; Prothrombin Time 24.5 Seconds (11.1-14.7)
[2021-08-13 07:02] LABS: Sodium 136 mmol/L (137-145)
[2021-08-13 07:34] LABS: Alanine Aminotransferase 21 U/L (6-50); Albumin Level 2.9 g/dL (3.5-5.1); Alkaline Phosphatase 86 U/L (38-126); Anion Gap 2 mmol/L (8-16); Aspartate Amino Transferase 36 U/L (17-59); Bilirubin,Total 0.9 mg/dL (0.2-1.3); Blood Urea Nitrogen 33 mg/dL (9-20); Calcium 8.2 mg/dL (8.4-10.2); Carbon Dioxide 30 mmol/L (22-30); Chloride 104 mmol/L (98-107); Estimated CRCL calculation 43 ml/min; Estimated Glomerular Filt Rate 53; Glucose 102 mg/dL (65-110); Potassium 4.9 mmol/L (3.4-5.0)
[2021-08-13 08:55] VITALS: PULSE 112
[2021-08-13] MEDS: PANTOPRAZOLE 40 MG TABLET BY MOUTH (08:55)
[2021-08-13] MEDS: MULTIVITAMINS /C LUTEIN (CENTRUM SILVER) TABLET *BKC 1 TAB PO (08:55)
[2021-08-13] MEDS: FUROSEMIDE 20 MG TABLET BY MOUTH (08:55)
[2021-08-13] MEDS: METOPROLOL TARTRATE 25 MG TABLET PO ×2 (08:55→20:48)
[2021-08-13] MEDS: REMDESIVIR 100 MG/NS 250 ML 100 MG/250 ML BAG 250 MG IVPB (09:20)
[2021-08-13 14:00] VITALS: BP 120/70; PULSE 90; RESP 22; TEMP 36.6; O2SAT 92
--- NOTE | 2021-08-13 14:42 | PM.IMPN ---
Progress Note: A&P Assessment and Plan (1) COVID-19: Code(s): U07.1 - COVID-19 Status: Acute Assessment and Plan: -Patient tested positive on at home kit on August 04. -Patient was prescribed and took Paxlovid on 08/04/2021. -No oxygen requirement at this time though he is at risk for severe COVID thus will start remdesivir. -No indication for dexamethasone as he has no oxygen requirement at this time. -Continue isolation precautions per protocol. -check CTA to r/o PE as he remains mildly tachycardic and hypoxic (2) Pneumonia involving left lung: Code(s): J18.9 - Pneumonia, unspecified organism Status: Acute Assessment and Plan: -Imaging findings seem consistent with bacterial pneumonia though he has a normal white blood cell count. -Continue azithromycin and ceftriaxone, pending sputum culture and urine antigens. (3) Hyperglycemia: Code(s): R73.9 - Hyperglycemia, unspecified Status: Acute Assessment and Plan: -Random glucose today is 102 -Hgb A1c 6.5 -Consider starting Metformin on discharge, discuss diet control and lifestyle modifications (4) Congestive heart failure: Code(s): I50.9 - Heart failure, unspecified Status: Acute Assessment and Plan: -Clinically compensated; patient states his current lower extremity edema is at his baseline. 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 -Continue warfarin and monitor daily. (6) Paroxysmal atrial fibrillation: Code(s): I48.0 - Paroxysmal atrial fibrillation Status: Acute Assessment and Plan: -Currently sounds to be in a normal sinus rhythm. -Continue metoprolol 25 mg b.i.d.. (7) Rheumatoid arthritis: Code(s): M06.9 - Rheumatoid arthritis, unspecified Status: Acute Assessment and Plan: -Hold azathioprine given concerns for bacterial pneumonia. (8) Coronary artery disease: Code(s): I25.10 - Atherosclerotic heart disease of [place] coronary artery without angina pectoris Status: Acute Assessment and Plan: -No acute issues. -Continue metoprolol, simvastatin, ticagrelor. (9) Hypertension: Code(s): I10 - Essential (primary) hypertension Status: Acute Assessment and Plan: -Blood pressures were reviewed and they are stable. -Continue antihypertensives and monitor daily. Subjective Date/time seen: 08/13/21 14:42 Interval history: 80-year-old male with hypertension, paroxysmal atrial fibrillation on chronic anticoagulation, aortic stenosis status post AVR with severe bioprosthetic aortic stenosis, coronary artery disease, rheumatoid arthritis on immunosuppressants, and other comorbidities, admitted to the hospital for COVID. Pt is feeling okay today. He denies cp/sob. Has been up and ambulating to the bathroom without significant difficulty. Has bilateral LE edema which he states is chronic. Review of Systems Review of Systems: All systems reviewed & are unremarkable except as noted in HPI and below Exam Narrative: General: NAD, non toxic appearing, elderly HEENT: Wearing hearing aids. PERRL, EOMI. Sclerae anicteric. Oral mucosa moist. Neck: Supple. Respiratory: Lungs CTA bilaterally, no wheezing or rhonchi Cardiovascular: Regular rate and rhythm with S1-S2. Systolic murmur heard at the apex and upper sternal border. Gastrointestinal: Abdomen is soft, nontender, and nondistended with positive bowel sounds. Skin: Warm and dry. No rash or lesions on limited exam. Extremities: No cyanosis or clubbing. 2+ edema to the knees bilaterally. Radial and pedal pulses intact. Neurological: Alert. Cranial nerves 2-12 are grossly intact. No gross focal deficits to casual conversation. Psychiatric: Pleasant and coope
[2021-08-13] MEDS: WARFARIN (*PBKC) 5 MG TABLET PO (17:15)
[2021-08-13 20:48] VITALS: PULSE 90
[2021-08-13 21:58] VITALS: BP 96/58; PULSE 84; RESP 18; TEMP 36.3; O2SAT 92
[2021-08-14] VITALS (7 sets, daily range): BP systolic 101–120; BP diastolic 46–79; PULSE 72–117; RESP 18–20; TEMP 36.4–36.7; O2SAT 90–98
[2021-08-14 06:42] LABS: Basophils Percent Auto 0.3 % (0.2-1.2); Eosinophils Absolute Auto 0.1 K/mm3 (0-0.3); Eosinophils Percent Auto 0.7 % (0-4.4); Hematocrit 31.9 % (42.0-52.0); Hemoglobin 10.3 g/dL (14.0-18.0); Immature Granulocyte Absolute 0.04 K/mm3 (0.00-0.031); Immature Granulocyte Percent A 0.5 % (0-0.5); Lymphocytes Percent Auto 4.1 % (18.3-44.2); Mean Corpuscular HGB Conc 32.3 g/dl (32-36); Mean Corpuscular Hemoglobin 32.4 pg (26-34); Mean Corpuscular Volume 100.3 fl (80-100); Mean Platelet Volume 10.2 fl (7.4-10.4); Monocytes Absolute Auto 1.2 K/mm3 (0.1-0.6); Monocytes Percent Auto 16.3 % (2.6-8.5); Neutrophils Absolute Auto 5.8 K/mm3 (1.3-6.7); Neutrophils Percent Auto 78.1 % (45.5-73.1); Platelet Count Result 113 k/mm3 (150-375); Red Blood Count 3.18 M/mm3 (4.6-6.20); Red Cell Distribution Width 17.2 % (11.5-14.5); White Blood Count 7.4 K/mm3 (4.5-10.0)
[2021-08-14 06:51] LABS: INR 2.1; Prothrombin Time 23.2 Seconds (11.1-14.7)
[2021-08-14 06:56] LABS: Alanine Aminotransferase 22 U/L (6-50); Albumin Level 2.9 g/dL (3.5-5.1); Alkaline Phosphatase 82 U/L (38-126); Anion Gap 4 mmol/L (8-16); Aspartate Amino Transferase 38 U/L (17-59); Bilirubin,Total 1.3 mg/dL (0.2-1.3); Blood Urea Nitrogen 29 mg/dL (9-20); CRP 8.3 mg/dL (<1.0); Calcium 8.3 mg/dL (8.4-10.2); Carbon Dioxide 26 mmol/L (22-30); Chloride 103 mmol/L (98-107); Estimated CRCL calculation 51 ml/min; Estimated Glomerular Filt Rate > 60; Glucose 97 mg/dL (65-110); Lactate Dehydrogenase 708 U/L (313-618); Potassium 4.7 mmol/L (3.4-5.0); Sodium 133 mmol/L (137-145)
[2021-08-14] MEDS: PANTOPRAZOLE 40 MG TABLET BY MOUTH (09:32)
[2021-08-14] MEDS: METOPROLOL TARTRATE 25 MG TABLET PO ×2 (09:32→21:35)
[2021-08-14] MEDS: MULTIVITAMINS /C LUTEIN (CENTRUM SILVER) TABLET *BKC 1 TAB PO (09:32)
[2021-08-14] MEDS: FUROSEMIDE 20 MG TABLET BY MOUTH (09:32)
--- NOTE | 2021-08-14 10:28 | PM.IMPN ---
Progress Note: A&P Assessment and Plan (1) COVID-19: Code(s): U07.1 - COVID-19 Status: Acute Assessment and Plan: -Patient tested positive on at home kit on August 04. -Patient was prescribed and took Paxlovid on 08/04/2021. -No oxygen requirement at this time though he is at risk for severe COVID thus will start remdesivir. -No indication for dexamethasone as he has no oxygen requirement at this time. -Continue isolation precautions per protocol. -CTA confirms PE (2) Pulmonary emboli: Code(s): I26.99 - Other pulmonary embolism without acute cor pulmonale Status: Acute Assessment and Plan: -confirmed on CTA -pt on chronic anticoagulation with coumadin for afib, was therapeutic at 2.5 on arrival, however review of recent records indicate that 3-4 weeks ago he was subtherapeutic at 1.6/1.8. Unclear when the clots formed, however pt was not diagnosed with covid (a known risk factor) until after the period of time where he was subtherapeutic. -continue coumadin for now as he is therapeutic at this time. Dr. Ashley hematology consulted for further recommendations regarding anticoagulation. I have also asked multi care technician to [place] check Xaralto/Eliquis. (3) DVT (deep venous thrombosis): Code(s): I82.409 - Acute embolism and thrombosis of unspecified deep veins of unspecified lower extremity Status: Acute Assessment and Plan: -confirmed on venous doppler -see plan as above (4) Pneumonia involving left lung: Code(s): J18.9 - Pneumonia, unspecified organism Status: Acute Assessment and Plan: -Imaging findings seem consistent with bacterial pneumonia though he has a normal white blood cell count. -Continue azithromycin and ceftriaxone, pending sputum culture and urine antigens. (5) Hyperglycemia: Code(s): R73.9 - Hyperglycemia, unspecified Status: Acute Assessment and Plan: -Random glucose today is 97 -Hgb A1c 6.5 -Consider starting Metformin on discharge, discuss diet control and lifestyle modifications (6) Congestive heart failure: Code(s): I50.9 - Heart failure, unspecified Status: Acute Assessment and Plan: -Clinically compensated; patient states his current lower extremity edema is at his baseline. 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 -Dr. Ashley consulted -see plan as above (8) Paroxysmal atrial fibrillation: Code(s): I48.0 - Paroxysmal atrial fibrillation Status: Acute Assessment and Plan: -Currently sounds to be in a normal sinus rhythm. -Continue metoprolol 25 mg b.i.d. -anticoagulation plan as above (9) Rheumatoid arthritis: Code(s): M06.9 - Rheumatoid arthritis, unspecified Status: Acute Assessment and Plan: -Hold azathioprine given concerns for bacterial pneumonia. (10) Coronary artery disease: Code(s): I25.10 - Atherosclerotic heart disease of [place] coronary artery without angina pectoris Status: Acute Assessment and Plan: -No acute issues. -Continue metoprolol, simvastatin, ticagrelor. (11) Hypertension: Code(s): I10 - Essential (primary) hypertension Status: Acute Assessment and Plan: -Blood pressures were reviewed and they are stable. -Continue antihypertensives and monitor daily. 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 Pt still having mild sob, worse
[2021-08-14] MEDS: REMDESIVIR 100 MG/NS 250 ML 100 MG/250 ML BAG 250 MG IVPB (12:04)
[2021-08-14] MEDS: WARFARIN (*PBKC) 2.5 MG TABLET BY MOUTH (16:46)
--- NOTE | 2021-08-14 18:03 | PDONCCN ---
HPI - Date of Consult Date/Time: 08/14/21 18:03 Requesting Physician: Martha Calles PA-C Primary Care Provider: Ian Acharya MD - Consult Narrative Reason for consult: Hypercoagulable state Narrative: Teofilo Villanueva is a 80 year old male with history of atrial fibrillation and DVT more than 8 years ago has been on chronic anticoagulation therapy with Coumadin. Patient also has history of aortic stenosis status post bioprosthetic aortic valve replacement and coronary artery disease. He was on Coumadin 2.5 mg along with Plavix. He came into the hospital with shortness of breath. He was tested positive for COVID-19 on August 04 on home test. CTA chest showed pulmonary embolism in the right lower lobe as well as mediastinal lymphadenopathy likely reactive and airspace opacity in the lingula and lower lobes consistent with COVID-19 pneumonia. Doppler study showed DVT involving left popliteal posterior tibial and peroneal vein. INR was therapeutic at 2.5 on admission. He denies any bleeding and bruising. Complaining of some left lower extremity swelling and pain. Breathing has improved. No fevers and chills. Review of Systems - Review of Systems All systems reviewed & are unremarkable except as noted in HPI and [facility] Medical History: Medical History (Last Updated 08/12/21 @ 15:47 by Jessie Lal PA-C) Arthritis Basal cell carcinoma Chronic anticoagulation Congestive heart failure Coronary artery disease Deep venous thrombosis Hemorrhoids Hyperlipidemia Hypertension Mitral stenosis Severe mitral stenosis on echocardiogram in June 2021. Myocardial infarction Nonrheumatic aortic valve disorder, unspecified Status post TAVR with severe bioprosthetic aortic stenosis. Paroxysmal atrial fibrillation Peptic ulcer disease Rectal polyp Rheumatoid arthritis Shingles Wears hearing aid in both ears Surgical History: Surgical History (Last Updated 08/12/21 @ 15:41 by Jessie Lal PA-C) History of aortic valve replacement Onset Date: 2010 25 mm equine in 2010. Status post TAVR in May 2021. History of appendectomy History of bilateral cataract extraction History of bilateral knee arthroplasty History of cardiac catheterization History of coronary artery bypass graft History of hip replacement History of inguinal hernia repair History of lithotripsy History of tonsillectomy Family History: Family History (Last Reviewed 08/12/21 @ 15:35 by Jessie Lal PA-C) Mother Diabetes mellitus Family history of cardiovascular disease Acute myocardial infarction Father Family history of cardiovascular disease Acute myocardial infarction - Social History Social History: Social History (Last Updated 08/12/21 @ 15:41 by Jessie Lal PA-C) Alcohol Use: Alcohol intake: never Substance Use: Substance use: never Others: Spiritual care concerns: No Smoking Status: Smoking status: Former smoker Comments: Additional smoking assessment comments: Smoked 3 to 4 cigars per day. Meds Home Medications Medication Instructions Recorded Confirmed Type multivit with minerals-iron 18 1 tablet PO DAILY 01/18/19 08/12/21 History mg-folic ac 400 mcg-vit K 25 mcg tablet (Multi-Day Plus Minerals) pantoprazole 40 mg tablet,delayed See Rx Instructions .Route 08/25/20 08/12/21 Rx release .COMPLEX #90 tabs azathioprine 100 mg tablet 100 mg PO BID 07/07/21 08/12/21 History metoprolol tartrate 50 mg tablet 25 mg PO BID 07/07/21 08/12/21 History warfarin 2.5 mg tablet See Rx Instructions .Route .COMPLEX 07/07/21 08/12/21 History warfarin 5 mg tablet 5 mg PO DAILY 07/07/21 08/12/21 History furosemide 20 mg tablet See Rx Instructions .Route 07/27/21 08/12/21 Rx .COMPLEX #30 tabs acetaminophen 325 mg tablet 500 mg PO Q6H PRN Mild Pain (Scale 08/12/21 08/12/21 History (Tylenol) Score 1-4) hydrochlorothiazide 12.5 mg tablet 12.5 mg PO
[2021-08-14 19:18] LABS: Iron 66 ug/dL (49-181)
[2021-08-14 19:28] LABS: Percent Iron Saturation 28 % (20-50)
[2021-08-14 20:20] LABS: Folic Acid > 20.0 ng/mL (2.76->20)
[2021-08-14] MEDS: APIXABAN 5 MG TABLET PO (21:35)
[2021-08-15] VITALS (8 sets, daily range): BP systolic 91–120; BP diastolic 50–90; PULSE 70–95; RESP 16–20; TEMP 36.3–36.9; O2SAT 93–98
[2021-08-15 06:06] LABS: Basophils Percent Auto 0.4 % (0.2-1.2); Eosinophils Absolute Auto 0.1 K/mm3 (0-0.3); Eosinophils Percent Auto 0.6 % (0-4.4); Hematocrit 34.8 % (42.0-52.0); Hemoglobin 11.2 g/dL (14.0-18.0); Immature Granulocyte Absolute 0.09 K/mm3 (0.00-0.031); Lymphocytes Absolute Auto 0.37 K/mm3 (0.9-3.2); Lymphocytes Percent Auto 3.9 % (18.3-44.2); Mean Corpuscular HGB Conc 32.2 g/dl (32-36); Mean Corpuscular Hemoglobin 32.3 pg (26-34); Mean Corpuscular Volume 100.3 fl (80-100); Mean Platelet Volume 11.4 fl (7.4-10.4); Monocytes Absolute Auto 1.3 K/mm3 (0.1-0.6); Monocytes Percent Auto 13.5 % (2.6-8.5); Neutrophils Absolute Auto 7.6 K/mm3 (1.3-6.7); Neutrophils Percent Auto 80.6 % (45.5-73.1); Platelet Count Result 117 k/mm3 (150-375); Red Blood Count 3.47 M/mm3 (4.6-6.20); Red Cell Distribution Width 17.7 % (11.5-14.5); White Blood Count 9.5 K/mm3 (4.5-10.0)
[2021-08-15 06:19] LABS: INR 2.9; Prothrombin Time 29.4 Seconds (11.1-14.7)
[2021-08-15 06:24] LABS: Alanine Aminotransferase 22 U/L (6-50); Anion Gap 8 mmol/L (8-16); Blood Urea Nitrogen 34 mg/dL (9-20); Calcium 8.5 mg/dL (8.4-10.2); Carbon Dioxide 26 mmol/L (22-30); Chloride 102 mmol/L (98-107); Estimated CRCL calculation 47 ml/min; Estimated Glomerular Filt Rate 58; Glucose 105 mg/dL (65-110); Potassium 4.9 mmol/L (3.4-5.0); Sodium 136 mmol/L (137-145)
[2021-08-15] MEDS: MULTIVITAMINS /C LUTEIN (CENTRUM SILVER) TABLET *BKC 1 TAB PO (09:23)
[2021-08-15] MEDS: METOPROLOL TARTRATE 25 MG TABLET PO ×2 (09:23→20:36)
[2021-08-15] MEDS: FUROSEMIDE 20 MG TABLET BY MOUTH (09:23)
[2021-08-15] MEDS: PANTOPRAZOLE 40 MG TABLET BY MOUTH (09:23)
[2021-08-15] MEDS: REMDESIVIR 100 MG/NS 250 ML 100 MG/250 ML BAG 250 MG IVPB (09:54)
[2021-08-15] MEDS: APIXABAN 5 MG TABLET PO ×2 (09:54→20:35)
--- NOTE | 2021-08-15 10:41 | PM.IMPN ---
Progress Note: A&P Assessment and Plan (1) COVID-19: Code(s): U07.1 - COVID-19 Status: Acute Assessment and Plan: -Patient tested positive on at home kit on August 04. -Patient was prescribed and took Paxlovid on 08/04/2021. -No oxygen requirement at this time though he is at risk for severe COVID thus will start remdesivir. -No indication for dexamethasone as he has no oxygen requirement at this time. -Continue isolation precautions per protocol. -CTA confirms PE (2) Pulmonary emboli: Code(s): I26.99 - Other pulmonary embolism without acute cor pulmonale Status: Acute Assessment and Plan: -confirmed on CTA -pt on chronic anticoagulation with coumadin for afib, was therapeutic at 2.5 on arrival, however review of recent records indicate that 3-4 weeks ago he was subtherapeutic at 1.6/1.8. Unclear when the clots formed, however pt was not diagnosed with covid (a known risk factor) until after the period of time where he was subtherapeutic. -Dr. Ashley hematology consulted for further recommendations regarding anticoagulation. He has recommended switching to Eliquis. (3) DVT (deep venous thrombosis): Code(s): I82.409 - Acute embolism and thrombosis of unspecified deep veins of unspecified lower extremity Status: Acute Assessment and Plan: -confirmed on venous doppler -see plan as above (4) Pneumonia involving left lung: Code(s): J18.9 - Pneumonia, unspecified organism Status: Acute Assessment and Plan: -Imaging findings seem consistent with bacterial pneumonia though he has a normal white blood cell count. -Continue azithromycin and ceftriaxone, pending sputum culture and urine antigens. (5) Hyperglycemia: Code(s): R73.9 - Hyperglycemia, unspecified Status: Acute Assessment and Plan: -Random glucose today is 105 -Hgb A1c 6.5 -Consider starting Metformin on discharge, discuss diet control and lifestyle modifications (6) Congestive heart failure: Code(s): I50.9 - Heart failure, unspecified Status: Acute Assessment and Plan: -Clinically compensated; patient states his current lower extremity edema is at his baseline. (7) Chronic anticoagulation: Code(s): Z79.01 - intermodal owner operator truck driver (current) use of anticoagulants Status: Acute Assessment and Plan: -INR therapeutic on arrival at 2.5. -Dr. Ashley consulted -see plan as above (8) Paroxysmal atrial fibrillation: Code(s): I48.0 - Paroxysmal atrial fibrillation Status: Acute Assessment and Plan: -Currently sounds to be in a normal sinus rhythm. -Continue metoprolol 25 mg b.i.d. -anticoagulation plan as above (9) Rheumatoid arthritis: Code(s): M06.9 - Rheumatoid arthritis, unspecified Status: Acute Assessment and Plan: -Hold azathioprine given concerns for bacterial pneumonia. (10) Coronary artery disease: Code(s): I25.10 - Atherosclerotic heart disease of [place] coronary artery without angina pectoris Status: Acute Assessment and Plan: -No acute issues. -Continue metoprolol, simvastatin, ticagrelor. (11) Hypertension: Code(s): I10 - Essential (primary) hypertension Status: Acute Assessment and Plan: -Blood pressures were reviewed and they are stable. -Continue antihypertensives and monitor daily. Subjective Date/time seen: 08/15/21 10:41 Interval history: 80-year-old male with hypertension, paroxysmal atrial fibrillation on chronic anticoagulation, aortic stenosis status post AVR with severe bioprosthetic aortic stenosis, coronary artery disease, rheumatoid arthritis on immunosuppressants, and other comorbidities, admitted to the hospital for COVID and DVT/PE. Denies cp/sob today. Tachycardic and tachypneic right after working with therapy but denies feeling symptomatic. Sti
[2021-08-15 11:42] LABS: Pneumococcal Antigen Urine Not Detected (Not Detected)
[2021-08-15 21:30] LABS: Legionella pneumophila Ag Ur Not Detected (Not Detected)
[2021-08-16] VITALS (7 sets, daily range): BP systolic 109–123; BP diastolic 51–61; PULSE 93–104; RESP 18–20; TEMP 36.3–36.7; O2SAT 91–97
[2021-08-16 07:09] LABS: Basophils Percent Auto 0.2 % (0.2-1.2); Eosinophils Absolute Auto 0.1 K/mm3 (0-0.3); Eosinophils Percent Auto 0.6 % (0-4.4); Hematocrit 32.7 % (42.0-52.0); Hemoglobin 10.5 g/dL (14.0-18.0); Immature Granulocyte Absolute 0.07 K/mm3 (0.00-0.031); Immature Granulocyte Percent A 0.7 % (0-0.5); Lymphocytes Absolute Auto 0.35 K/mm3 (0.9-3.2); Lymphocytes Percent Auto 3.7 % (18.3-44.2); Mean Corpuscular HGB Conc 32.1 g/dl (32-36); Mean Corpuscular Hemoglobin 32.4 pg (26-34); Mean Corpuscular Volume 100.9 fl (80-100); Mean Platelet Volume 10.6 fl (7.4-10.4); Monocytes Absolute Auto 1.3 K/mm3 (0.1-0.6); Monocytes Percent Auto 13.1 % (2.6-8.5); Neutrophils Absolute Auto 7.8 K/mm3 (1.3-6.7); Neutrophils Percent Auto 81.7 % (45.5-73.1); Platelet Count Result 115 k/mm3 (150-375); Red Blood Count 3.24 M/mm3 (4.6-6.20); Red Cell Distribution Width 18.1 % (11.5-14.5); White Blood Count 9.5 K/mm3 (4.5-10.0)
[2021-08-16 07:19] LABS: Alanine Aminotransferase 19 U/L (6-50); Albumin Level 2.7 g/dL (3.5-5.1); Alkaline Phosphatase 85 U/L (38-126); Anion Gap 5 mmol/L (8-16); Aspartate Amino Transferase 35 U/L (17-59); Bilirubin,Total 1.1 mg/dL (0.2-1.3); Blood Urea Nitrogen 39 mg/dL (9-20); Carbon Dioxide 24 mmol/L (22-30); Chloride 106 mmol/L (98-107); Estimated CRCL calculation 51 ml/min; Estimated Glomerular Filt Rate > 60; Glucose 94 mg/dL (65-110); Potassium 4.5 mmol/L (3.4-5.0); Sodium 135 mmol/L (137-145)
[2021-08-16 07:21] LABS: INR 3.5; Prothrombin Time 34.3 Seconds (11.1-14.7)
[2021-08-16 07:53] LABS: Poikilocytosis 1+ (NORMAL)
[2021-08-16 07:54] LABS: Anisocytosis 1+ (NORMAL); Ovalocytes 1+ (NORMAL)
[2021-08-16] MEDS: APIXABAN 5 MG TABLET PO ×2 (08:32→20:10)
[2021-08-16] MEDS: METOPROLOL TARTRATE 25 MG TABLET PO ×2 (08:33→20:10)
[2021-08-16] MEDS: FUROSEMIDE 20 MG TABLET BY MOUTH (08:33)
[2021-08-16] MEDS: PANTOPRAZOLE 40 MG TABLET BY MOUTH (08:33)
[2021-08-16] MEDS: MULTIVITAMINS /C LUTEIN (CENTRUM SILVER) TABLET *BKC 1 TAB PO (08:33)
[2021-08-16] MEDS: REMDESIVIR 100 MG/NS 250 ML 100 MG/250 ML BAG 250 MG IVPB (11:14)
--- NOTE | 2021-08-16 12:44 | PM.IMPN ---
Progress Note: A&P Assessment and Plan (1) COVID-19: Code(s): U07.1 - COVID-19 Status: Acute Assessment and Plan: -Patient tested positive on at home kit on August 04. -Patient was prescribed and took Paxlovid on 08/04/2021. -No oxygen requirement at this time though he is at risk for severe COVID thus will start remdesivir. -No indication for dexamethasone as he has no oxygen requirement at this time. -Continue isolation precautions per protocol. -CTA confirms PE (2) Pulmonary emboli: Code(s): I26.99 - Other pulmonary embolism without acute cor pulmonale Status: Acute Assessment and Plan: -confirmed on CTA -pt on chronic anticoagulation with coumadin for afib, was therapeutic at 2.5 on arrival, however review of recent records indicate that 3-4 weeks ago he was subtherapeutic at 1.6/1.8. Unclear when the clots formed, however pt was not diagnosed with covid (a known risk factor) until after the period of time where he was subtherapeutic. -Dr. Ashley hematology consulted for further recommendations regarding anticoagulation. He has recommended switching to Eliquis. -care coordination working on pricing for Eliquis (3) DVT (deep venous thrombosis): Code(s): I82.409 - Acute embolism and thrombosis of unspecified deep veins of unspecified lower extremity Status: Acute Assessment and Plan: -confirmed on venous doppler -see plan as above (4) Pneumonia involving left lung: Code(s): J18.9 - Pneumonia, unspecified organism Status: Acute Assessment and Plan: -Imaging findings seem consistent with bacterial pneumonia though he has a normal white blood cell count. -Continue azithromycin and ceftriaxone, pending sputum culture and urine antigens. (5) Hyperglycemia: Code(s): R73.9 - Hyperglycemia, unspecified Status: Acute Assessment and Plan: -Random glucose today is 94 -Hgb A1c 6.5 -Consider starting Metformin on discharge, discuss diet control and lifestyle modifications (6) Congestive heart failure: Code(s): I50.9 - Heart failure, unspecified Status: Acute Assessment and Plan: -Clinically compensated; patient states his current lower extremity edema is at his baseline. (7) Chronic anticoagulation: Code(s): Z79.01 - USP (current) use of anticoagulants Status: Acute Assessment and Plan: -INR therapeutic on arrival at 2.5. -Dr. Ashley consulted -see plan as above (8) Paroxysmal atrial fibrillation: Code(s): I48.0 - Paroxysmal atrial fibrillation Status: Acute Assessment and Plan: -Currently sounds to be in a normal sinus rhythm. -Continue metoprolol 25 mg b.i.d. -anticoagulation plan as above (9) Rheumatoid arthritis: Code(s): M06.9 - Rheumatoid arthritis, unspecified Status: Acute Assessment and Plan: -Hold azathioprine given concerns for bacterial pneumonia. (10) Coronary artery disease: Code(s): I25.10 - Atherosclerotic heart disease of [place] coronary artery without angina pectoris Status: Acute Assessment and Plan: -No acute issues. -Continue metoprolol, simvastatin, ticagrelor. (11) Hypertension: Code(s): I10 - Essential (primary) hypertension Status: Acute Assessment and Plan: -Blood pressures were reviewed and they are stable. -Continue antihypertensives and monitor daily. 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 Feeling okay. No cp/sob. Still coughing. No N/V/abd pain. Still
[2021-08-17] VITALS (7 sets, daily range): BP systolic 92–124; BP diastolic 56–80; PULSE 61–103; RESP 16–18; TEMP 36.1–36.4; O2SAT 90–95
--- NOTE | 2021-08-17 02:21 | PC.NURSE ---
08/17/21 0221 another nurse assisted pt to restroom who stated pt became sob while ambulating back from restroom. o2 sats in the 80's. i checked pt o2 sats which is now 90% room air. pt resting comfortably in bed. denies sob. will continue to monitor.
[2021-08-17 06:50] LABS: Basophils Percent Auto 0.5 % (0.2-1.2); Eosinophils Absolute Auto 0.1 K/mm3 (0-0.3); Eosinophils Percent Auto 0.8 % (0-4.4); Hematocrit 31.4 % (42.0-52.0); Hemoglobin 10.1 g/dL (14.0-18.0); Immature Granulocyte Absolute 0.04 K/mm3 (0.00-0.031); Immature Granulocyte Percent A 0.5 % (0-0.5); Lymphocytes Absolute Auto 0.36 K/mm3 (0.9-3.2); Lymphocytes Percent Auto 4.9 % (18.3-44.2); Mean Corpuscular HGB Conc 32.2 g/dl (32-36); Mean Corpuscular Hemoglobin 32.6 pg (26-34); Mean Corpuscular Volume 101.3 fl (80-100); Mean Platelet Volume 11.2 fl (7.4-10.4); Monocytes Absolute Auto 0.9 K/mm3 (0.1-0.6); Monocytes Percent Auto 11.7 % (2.6-8.5); Neutrophils Percent Auto 81.6 % (45.5-73.1); Nucleated Red Blood Cells Perc 0.3 % (0.0-0.2); Platelet Count Result 121 k/mm3 (150-375); Red Cell Distribution Width 18.3 % (11.5-14.5); White Blood Count 7.4 K/mm3 (4.5-10.0)
[2021-08-17 06:51] LABS: INR 3.6; Prothrombin Time 34.4 Seconds (11.1-14.7)
[2021-08-17 06:56] LABS: Alanine Aminotransferase 19 U/L (6-50); Albumin Level 2.6 g/dL (3.5-5.1); Alkaline Phosphatase 79 U/L (38-126); Anion Gap 6 mmol/L (8-16); Aspartate Amino Transferase 31 U/L (17-59); Bilirubin,Total 0.9 mg/dL (0.2-1.3); Blood Urea Nitrogen 36 mg/dL (9-20); Calcium 7.7 mg/dL (8.4-10.2); Carbon Dioxide 25 mmol/L (22-30); Chloride 105 mmol/L (98-107); Estimated CRCL calculation 51 ml/min; Estimated Glomerular Filt Rate > 60; Glucose 91 mg/dL (65-110); Potassium 4.3 mmol/L (3.4-5.0); Sodium 136 mmol/L (137-145)
[2021-08-17] MEDS: APIXABAN 5 MG TABLET PO (08:53)
[2021-08-17] MEDS: MULTIVITAMINS /C LUTEIN (CENTRUM SILVER) TABLET *BKC 1 TAB PO (08:53)
[2021-08-17] MEDS: METOPROLOL TARTRATE 25 MG TABLET PO (08:53)
[2021-08-17] MEDS: FUROSEMIDE 20 MG TABLET BY MOUTH (08:53)
[2021-08-17] MEDS: PANTOPRAZOLE 40 MG TABLET BY MOUTH (08:53)
--- NOTE | 2021-08-17 09:30 | PM.DS ---
DS: Admitting Diagnosis Discharge Date 08/17/21 Admitting Diagnosis covid DS: Discharge Diagnosis Discharge Diagnosis (1) COVID-19: Code(s): U07.1 - COVID-19 Status: Acute Assessment and Plan: -Patient tested positive on at home kit on August 04. -Patient was prescribed and took Paxlovid on 08/04/2021. -No oxygen requirement at this time though he is at risk for severe COVID thus gave remdesivir x4 days -No indication for dexamethasone as he has no oxygen requirements. -Continued isolation precautions per protocol. -CTA confirms PE, plan as below. (2) Pulmonary emboli: Code(s): I26.99 - Other pulmonary embolism without acute cor pulmonale Status: Acute Assessment and Plan: -confirmed on CTA -pt on chronic anticoagulation with coumadin for afib, was therapeutic at 2.5 on arrival. -Dr. Ashley hematology consulted for further recommendations regarding anticoagulation. He has recommended switching to Eliquis. -care coordination working on pricing for Eliquis, pt to be discharged home on Eliquis. Will follow up with pcp in 1 week. (3) DVT (deep venous thrombosis): Code(s): I82.409 - Acute embolism and thrombosis of unspecified deep veins of unspecified lower extremity Status: Acute Assessment and Plan: -confirmed on venous doppler -see plan as above (4) Pneumonia involving left lung: Code(s): J18.9 - Pneumonia, unspecified organism Status: Acute Assessment and Plan: -Imaging findings seem consistent with bacterial pneumonia though he has a normal white blood cell count. -Continued azithromycin and ceftriaxone #5, will do 2 more days of Augmentin on discharge (5) Hyperglycemia: Code(s): R73.9 - Hyperglycemia, unspecified Status: Acute Assessment and Plan: -Random glucose today is 91 -Hgb A1c 6.5 -discussed diet control and lifestyle modifications, pcp follow up (6) Congestive heart failure: Code(s): I50.9 - Heart failure, unspecified Status: Acute Assessment and Plan: -Clinically compensated; patient states his current lower extremity edema is at his baseline. (7) Chronic anticoagulation: Code(s): Z79.01 - snf (current) use of anticoagulants Status: Acute Assessment and Plan: -INR therapeutic on arrival at 2.5. -Dr. Ashley consulted -see plan as above (8) Paroxysmal atrial fibrillation: Code(s): I48.0 - Paroxysmal atrial fibrillation Status: Acute Assessment and Plan: -Currently sounds to be in a normal sinus rhythm. -Continued metoprolol 25 mg b.i.d. -anticoagulation plan as above (9) Rheumatoid arthritis: Code(s): M06.9 - Rheumatoid arthritis, unspecified Status: Acute Assessment and Plan: -Held azathioprine given concerns for bacterial pneumonia. (10) Coronary artery disease: Code(s): I25.10 - Atherosclerotic heart disease of [place] coronary artery without angina pectoris Status: Acute Assessment and Plan: -No acute issues. -Continued metoprolol, simvastatin, ticagrelor. (11) Hypertension: Code(s): I10 - Essential (primary) hypertension Status: Acute Assessment and Plan: -Blood pressures were reviewed and they are stable. -Continue antihypertensives and monitor daily. 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 Please see HPI for further details. Hospital Course: Please see above for details of hospital course. Status at Discharge Cognitive/behavioral status at discharge: st
[2021-08-17 13:01] LABS: Haptoglobin 86 mg/dL (43-212)
== END 2021-08-17 15:46 | disposition home or self-care (01) | DRG 177 ==
LOC: ANHED 09:25 → ANH3MEDSUR 11:31
PROVIDERS: Internal Medicine Hematology & Oncology; Physician Assistant; Admitting Provider Chiropractor; Emergency Provider Emergency Medicine; PCP Family Medicine; Visit Provider Physician Assistant
DX: U07.1 COVID-19 (principal); I26.99 Other pulmonary embolism without acute cor pulmonale; J15.9 Unspecified bacterial pneumonia; J12.82 Pneumonia due to coronavirus disease 2019; I82.432 Acute embolism and thrombosis of left popliteal vein; I82.442 Acute embolism and thrombosis of left tibial vein; I82.452 Acute embolism and thrombosis of left peroneal vein; D68.59 Other primary thrombophilia; L03.116 Cellulitis of left lower limb; D53.9 Nutritional anemia, unspecified; D69.6 Thrombocytopenia, unspecified; E78.5 Hyperlipidemia, unspecified; I50.9 Heart failure, unspecified; I25.2 Old myocardial infarction; I11.0 Hypertensive heart disease with heart failure; I48.0 Paroxysmal atrial fibrillation; M06.9 Rheumatoid arthritis, unspecified; I25.10 Atherosclerotic heart disease of native coronary artery without angina pectoris; R73.9 Hyperglycemia, unspecified; Z79.02 Long term (current) use of antithrombotics/antiplatelets; Z79.01 Long term (current) use of anticoagulants; Z79.899 Other long term (current) drug therapy; Z95.4 Presence of other heart-valve replacement; Z97.4 Presence of external hearing-aid; Z85.828 Personal history of other malignant neoplasm of skin; Z98.41 Cataract extraction status, right eye; Z98.42 Cataract extraction status, left eye; Z96.653 Presence of artificial knee joint, bilateral; Z96.649 Presence of unspecified artificial hip joint; Z90.49 Acquired absence of other specified parts of digestive tract; Z95.1 Presence of aortocoronary bypass graft; Z87.891 Personal history of nicotine dependence; Z86.718 Personal history of other venous thrombosis and embolism
CPT/HCPCS: 36415; 71045; 71275; 80048; 80053; 82607; 82728; 82746; 83010; 83036; 83540; 83550; 83605; 83615; 83880; 84145; 84460; 84484; 85025; 85610; 85730; 86140; 86880; 87040; 87070; 87205; 87449; 87899; 93005; 93970; 94618; 96365; 96366; 96367; 97116; 97161; 97165; 97530; 99285; A9270; C9803; G0378; J0248; J0456; J0696; Q9967; U0003; U0005

== ENCOUNTER 2021-08-31 07:24 | Outpatient (CLI) | payer MEDICARE, SELFPAY ==
[2021-08-31 08:36] LABS: Anion Gap 1 mmol/L (8-16); Blood Urea Nitrogen 27 mg/dL (9-20); Calcium 8.5 mg/dL (8.4-10.2); Carbon Dioxide 32 mmol/L (22-30); Chloride 103 mmol/L (98-107); Estimated Glomerular Filt Rate > 60; Glucose 112 mg/dL (65-110); Potassium 4.9 mmol/L (3.4-5.0); Sodium 136 mmol/L (137-145)
[2021-08-31 08:41] LABS: NT Pro B Type Natriuretic Pept 2580 pg/mL (5-100)
== END 2021-08-31 07:25 | disposition home or self-care (01) ==
PROVIDERS: Visit Provider Nurse Practitioner Adult Health
DX: I48.11 Longstanding persistent atrial fibrillation (principal); I05.0 Rheumatic mitral stenosis
CPT/HCPCS: 36415; 80048; 83880

== ENCOUNTER 2021-09-09 11:57 | Inpatient (IN) | payer MEDICARE, SELFPAY ==
[2021-09-09] VITALS (11 sets, daily range): BP systolic 105–140; BP diastolic 38–84; PULSE 61–103; RESP 13–28; TEMP 36.4–36.7; O2SAT 90–97
--- NOTE | ~2021-09-09 | XR_ITS ---
XR chest 1V portable DATE: 09/12/2021 06:42 INDICATION: Shortness of breath TECHNIQUE: Portable AP chest on 09/12/2021 at 0601 hours COMPARISON: 09/11/2021 portable AP chest at 0534 hours FINDINGS: Persistent bilateral pulmonary infiltrates, left considerably greater than right, with choco le interval change since 09/11/2021. Persistent mild elevation left diaphragm. Status post sternotomy. IMPRESSION: Bilateral pulmonary infiltrates, left greater than right, osteophytic change since 09/12/19 22 Reviewed, dictated and finalized at location A. IMPRESSION: Bilateral pulmonary infiltrates, left greater than right, osteophyt ic change since 09/11/2021
--- NOTE | ~2021-09-09 | XR_ITS ---
MODIFIED ESOPHAGRAM HISTORY: Possible aspiration TECHNIQUE: Modified barium esophagram was performed on 09/11/2021. I administered fluoroscopy and perfo rmed the exam with speech pathologist. Patient was seated for lateral fluoroscopic imaging for inges tion of thin liquids, pudding, solids and quantified amounts, followed by thin liquids in uncontrolle d amounts. This was recorded on tape. A single fluoroscopic spot image was also recorded. The DAP for this procedure was 1.35 Gycm2. The amount of fluoroscopy time used during this procedure was 1.5 min utes. FINDINGS: Oral stage: Adequate function. Pharyngeal stage: Minimal pharyngeal dysphagia with reduced laryngeal elevation, piriform sinus resid ue and trace vallecular residue. No laryngeal penetration or aspiration.. Cervical/esophageal stage: Adequate function. IMPRESSION: Minimal pharyngeal dysphagia with no laryngeal penetration or aspiration. Please correla te with speech pathologist findings and specific feeding recommendations. Reviewed, dictated and finalized at location A. IMPRESSION: Minimal pharyngeal dysphagia with no laryngeal penetration or aspir ation. Please correlate with speech pathologist findings and specific feeding recommendations.
--- NOTE | ~2021-09-09 | XR_ITS ---
XR chest 1V portable DATE: 09/11/2021 05:54 INDICATION: Shortness of breath TECHNIQUE: Portable AP chest on 09/11/2021 at 0534 hours COMPARISON: 09/09/2021 CT pulmonary scan 09/09/2021 2 view chest FINDINGS: Status post sternotomy. Endoluminal aortic valve replacement. Cardiomegaly. Aortic calcific ation. Persistent prominent patchy consolidation left upper and lower lobes scattered mild patchy right lung infiltrates, stable since 09/09/2001. Small left pleural effusion. Aortic arch calcification. Osteopenia. IMPRESSION: Stable bilateral pulmonary infiltrates, much more prominent in the left upper and lower l obes, with little interval change since 09/09/2021 Reviewed, dictated and finalized at location A. IMPRESSION: Stable bilateral pulmonary infiltrates, much more prominent in the left upper and lower lobes, with little interval change since 09/09/2021
--- NOTE | ~2021-09-09 | XR_ITS ---
XR chest 2V DATE: 09/09/2021 12:50 INDICATION: Shortness of breath TECHNIQUE: AP and lateral views COMPARISON: 08/13/2021 CT pulmonary scan FINDINGS: Status post sternotomy and endoluminal aortic valve replacement. Cardiomegaly. Aortic calcification. There is patchy consolidation of the left mid and lower lung zones and lesser patchy infiltrate in th e right upper and mid and lower lung zones. Osteopenia. Osteoarthritis at left glenohumeral joint. IMPRESSION: Bilateral pneumonia, left greater than right Reviewed, dictated and finalized at location B.
--- NOTE | ~2021-09-09 | CT_ITS ---
EXAMINATION: CTA chest PE protocol DATE: 09/09/2021 14:28 INDICATION: Dyspnea. History of pulmonary emboli. TECHNIQUE: Computed tomography angiography (CTA) of the chest was performed with 100 mL Omnipaque-350 intravenous contrast timed to evaluate the pulmonary arteries. Coronal maximum intensity projection 3D-reconstructions were created by the technologist. Automated exposure control and iterative reconst ruction technique were employed. Exam dose: 393.07 mGy-cm total exam DLP. COMPARISON: 09/09/2021 PA and lateral chest FINDINGS: There is diagnostic contrast enhancement of the pulmonary arteries. There is moderate right lower lobe pulmonary embolism. No sign of right ventricular heart strain is noted. Small left pleural effusion. There is moderate patchy consolidation of the left upper and right lower lobes and lesser patchy right lower lobe infiltrate and some groundglass infiltrates of the remainin g lung estrada. Bilateral pneumonia is suspected. No pneumothorax. Status post sternotomy. Endovascular aortic valve replacement. There is extensive thoracic aortic, coronary artery and great vessel calcification. Cholelithiasis. There is extensive calcification of the abdominal aorta, celiac, hepatic and splenic arteries. Normal morphology of the adrenal glands. 2.7 cm upper pole left renal cyst. Surface nodularity of the liver consistent with cirrhosis. IMPRESSION: Right lower lobe pulmonary embolism Cardiomegaly Mild left pleural effusion Patchy bilateral pulmonary infiltrates, left greater than right Endoluminal aortic valve replacement Severe atherosclerotic calcifications of coronary arteries, thoracic and abdominal aortic, great vess els, celiac artery and branches Cholelithiasis Cirrhosis Left renal cyst Reviewed, dictated and finalized at Location A. Reviewed, dictated and finalized at location B. IMPRESSION: Right lower lobe pulmonary embolism Cardiomegaly Mild left pleural effusion Patchy bilateral pulmonary infiltrates, left greater than right Endoluminal aortic valve replacement Severe atherosclerotic calcifications of coronary arteries, thoracic and abdomi nal aortic, great vessels, celiac artery and branches Cholelithiasis Cirrhosis Left renal cyst
--- NOTE | ~2021-09-09 | US_ITS ---
EXAMINATION: US arterial ankle brachial ind DATE: 09/10/2021 13:14 INDICATION: Venous stasis dermatitis at the lower limbs. TECHNIQUE: Segmental pressures and plethysmographic and Doppler waveforms of the brachial and lower e xtremity arteries were obtained. COMPARISON: None. FINDINGS: Right and left brachial artery pressures of 131 mm Hg and 140 mm Hg, respectively, are concordant (no rmal difference <= 30 mmHg). Ankle pressures were not obtained due to the presence of previous identi fied deep venous necrosis at the left posterior tibial and peroneal veins of the calf. The right great toe-brachial index (TBI) is 1.84 (normal >= 0.65). Arterial Doppler waveforms are bip hasic with brisk systolic upstrokes at both right posterior tibial and dorsalis pedis arteries. The left TBI is 0.68. Arterial Doppler waveforms are biphasic with brisk systolic upstrokes at both l eft posterior tibial and dorsalis pedis arteries. IMPRESSION: 1. Normal bilateral TBI's. No significant arterial occlusive disease. Reviewed, dictated and finalized at location A.
--- NOTE | ~2021-09-09 | US_ITS ---
EXAMINATION:US venous doppler LE BI INDICATION:History of left lower extremity DVT. TECHNIQUE: Multiple grayscale, color flow and Doppler images of the right and left lower extremity de ep venous systems were obtained and reviewed. COMPARISON:Ultrasound dated 08/13/2021 FINDINGS: The right common femoral, superficial femoral and popliteal veins demonstrate normal respir atory variation, augmentation and compressibility. Color flow is also seen within the posterior tibi al, peroneal, greater saphenous and profunda veins. There is persistent deep venous thrombosis of the left popliteal and posterior tibial veins. IMPRESSION: 1: Persistent deep venous thrombosis of the left popliteal and posterior tibial veins. Reviewed, dictated and finalized at location A.
--- NOTE | 2021-09-09 12:04 | ECG_ITS ---
Measurements Intervals [place] Rate: 100 P: IA: 0 QRS: -33 QRSD: 101 T: 0 QT: 354 QTc: 458 Interpretive Statements ATRIAL FIBRILLATION WITH RAPID VENTRICULAR RESPONSE WITH ABERRANT CONDUCTION OR VENTRICULAR PREMATURE COMPLEXES LEFT AXIS DEVIATION [QRS AXIS < -30] LOW QRS VOLTAGE IN EXTREMITY LEADS [QRS DEFLECTION < 0.5 mV IN LIMB LEADS] Nonspecific ST changes COMPARED TO ECG 08/12/2021 09:04:56 ATRIAL FIBRILLATION NOW PRESENT ABERRANT CONDUCTION OF SUPRAVENTRICULAR BEAT(S) NOW PRESENT LEFT-AXIS DEVIATION NOW PRESENT Electronically Signed On 09-09-2021 12:51:12 CDT by Ani Mccormack M.D.
[2021-09-09 12:19] LABS: Basophils Percent Auto 0.6 % (0.2-1.2); Eosinophils Percent Auto 0.7 % (0-4.4); Hematocrit 33.7 % (42.0-52.0); Hemoglobin 10.2 g/dL (14.0-18.0); Immature Granulocyte Absolute 0.02 K/mm3 (0.00-0.031); Immature Granulocyte Percent A 0.4 % (0-0.5); Lymphocytes Absolute Auto 0.24 K/mm3 (0.9-3.2); Lymphocytes Percent Auto 4.4 % (18.3-44.2); Mean Corpuscular HGB Conc 30.3 g/dl (32-36); Mean Corpuscular Hemoglobin 33.2 pg (26-34); Mean Corpuscular Volume 109.8 fl (80-100); Mean Platelet Volume 9.8 fl (7.4-10.4); Monocytes Absolute Auto 0.6 K/mm3 (0.1-0.6); Monocytes Percent Auto 11.1 % (2.6-8.5); Neutrophils Absolute Auto 4.5 K/mm3 (1.3-6.7); Neutrophils Percent Auto 82.8 % (45.5-73.1); Platelet Count Result 226 k/mm3 (150-375); Red Blood Count 3.07 M/mm3 (4.6-6.20); Red Cell Distribution Width 19.6 % (11.5-14.5); White Blood Count 5.4 K/mm3 (4.5-10.0)
[2021-09-09 13:27] LABS: Alanine Aminotransferase 16 U/L (6-50); Albumin Level 3.5 g/dL (3.5-5.1); Alkaline Phosphatase 100 U/L (38-126); Anion Gap 7 mmol/L (8-16); Aspartate Amino Transferase 31 U/L (17-59); Bilirubin,Total 0.7 mg/dL (0.2-1.3); Blood Urea Nitrogen 25 mg/dL (9-20); Calcium 8.5 mg/dL (8.4-10.2); Carbon Dioxide 28 mmol/L (22-30); Chloride 103 mmol/L (98-107); Estimated CRCL calculation 52 ml/min; Estimated Glomerular Filt Rate 58; Glucose 150 mg/dL (65-110); Potassium 4.4 mmol/L (3.4-5.0); Sodium 138 mmol/L (137-145)
--- NOTE | 2021-09-09 14:45 | PM.IMHP ---
H&P: HPI History of Present Illness Date/Time: 09/09/21 14:45 Chief Complaint: Shortness of breath. 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 He tested positive for COVID on August 04 and was admitted to this hospital between 08/12/2021 and 08/17/2021 with left-sided pneumonia which appeared to be more consistent with bacterial pneumonia. He had no oxygen requirement however completed remdesivir as he is/was at high risk for poor outcomes given his immunocompromised status. Additionally he was diagnosed with a DVT and pulmonary embolism for which he was started on Eliquis. He was treated with azithromycin and ceftriaxone, his condition improved, and he was discharged with an additional 2 days of antibiotics. At the time dictation the patient notes that his chronic lower extremity edema seemed to be worse than usual however he attributed that to the fact that he was in the hospital and not moving around much. He has been trying to elevate his legs with perhaps only mild improvement in his swelling. In any event, in the polysomnography technician hours he began to feel short of breath and as the day has progressed he has become increasingly short of breath with lesser and lesser exertion. His symptoms were not improving and thus he came in for evaluation. CTA of the chest once again showed the right lower lobe pulmonary embolism noted during the recent stay as well as a mild left pleural effusion, and patchy bilateral pulmonary infiltrates (left greater than right). At the time my evaluation he is resting comfortably and he has no specific complaints. He denies fever, chills, sweats, sore throat, sinus congestion, chest pain, pleuritic pain, palpitations, nausea, vomiting, and diarrhea. He states compliance with his medications and has not missed any doses of his anticoagulant. Review of Systems Review of Systems: Twelve systems were reviewed and are negative except for as per HPI. [facility] Past Medical History Medical History (Updated 09/09/21 @ 20:48 by Jessie Lal PA-C) Arthritis Basal cell carcinoma Chronic anticoagulation Cirrhosis Congestive heart failure Coronary artery disease Deep venous thrombosis Hemorrhoids Hyperlipidemia Hypertension Mitral stenosis Severe mitral stenosis on echocardiogram in June 2021. Myocardial infarction Nonrheumatic aortic valve disorder, unspecified Status post TAVR with severe bioprosthetic aortic stenosis. Paroxysmal atrial fibrillation Peptic ulcer disease Rectal polyp Rheumatoid arthritis Shingles Wears hearing aid in both ears Surgical History Surgical History History of aortic valve replacement (2010) 25 mm equine in 2010. Status post TAVR in May 2021. History of appendectomy History of bilateral cataract extraction History of bilateral knee arthroplasty History of cardiac catheterization History of coronary artery bypass graft History of hip replacement History of inguinal hernia repair History of lithotripsy History of tonsillectomy Family History Family History Mother Diabetes mellitus Family history of cardiovascular disease Acute myocardial infarction Father Family history of cardiovascular disease Acute myocardial infarction Social History Social History Social History: Surrogate decision maker: Sandra Villanueva, . Code status: Full code. Smoking status: Never smoker Additional smoking assessment comments: Smoked 3 to 4 cigars per day. Alcohol intake: never Substa
--- NOTE | 2021-09-09 15:05 | ED.SOB ---
HPI - SOB/Dyspnea General Chief Complaint: Shortness of Breath/Dyspnea Stated Complaint: sob Time Seen by Provider: 09/09/21 12:42 Source: patient History of Present Illness HPI Narrative: Patient presents with shortness of breath. He was recently admitted to the hospital for COVID-pneumonia was also found to have a PE despite Coumadin therapy to switch to Eliquis. Reports overall during his hospitalization he was improving and was improving while he was at home. Last night and articulated this morning he had sudden worsening of his shortness of breath prickly with physical activity when he gets up and moves around he starts [id number] heavy given his change he came to the ER for further evaluation. Denies any focal areas of pain such as chest pain or abdominal pain denies any fevers chills nausea or vomiting. He denies any orthopnea. Related Data Home Medications Medication Instructions Recorded Confirmed multivit with minerals-iron 18 1 tablet PO DAILY 01/18/19 09/09/21 mg-folic ac 400 mcg-vit K 25 mcg tablet (Multi-Day Plus Minerals) azathioprine 100 mg tablet 100 mg PO BID 07/07/21 09/09/21 metoprolol tartrate 50 mg tablet 50 mg PO BID 07/07/21 09/09/21 acetaminophen 325 mg tablet 500 mg PO Q6H PRN Mild Pain (Scale 08/12/21 09/09/21 (Tylenol) Score 1-4) furosemide 20 mg tablet (Lasix) See Rx Instructions .Route .COMPLEX 09/09/21 09/09/21 Allergies Allergy/AdvReac Type Severity Reaction Status Date / Time No Known Allergies Allergy Verified 09/09/21 18:31 Review of Systems Review of Systems: CONSTITUTIONAL: Denies fever, chills, or sweats. EYES: Denies visual changes, redness, or discharge. ENT: Denies rhinorrhea, congestion, sore throat, or otalgia. CARDIOVASCULAR: Denies chest pain, palpitations, or edema. RESPIRATORY: Reports shortness of breath GASTROINTESTINAL: Denies abdominal pain, nausea, vomiting, or diarrhea. GENITOURINARY: Denies dysuria or hematuria. SKIN: Denies rash or itching. MUSCULOSKELETAL: Denies back pain, joint pain, or myalgia. NEUROLOGIC: Denies headache, numbness, dizziness, or weakness. PSYCHIATRIC: Denies anxiety or depression. All systems reviewed & are unremarkable except as noted in HPI and below PMFSH Past Medical History Medical History Arthritis Basal cell carcinoma Chronic anticoagulation Congestive heart failure Coronary artery disease Deep venous thrombosis Hemorrhoids Hyperlipidemia Hypertension Mitral stenosis Severe mitral stenosis on echocardiogram in June 2021. Myocardial infarction Nonrheumatic aortic valve disorder, unspecified Status post TAVR with severe bioprosthetic aortic stenosis. Paroxysmal atrial fibrillation Peptic ulcer disease Rectal polyp Rheumatoid arthritis Shingles Wears hearing aid in both ears Surgical History Surgical History History of aortic valve replacement (2010) 25 mm equine in 2010. Status post TAVR in May 2021. History of appendectomy History of bilateral cataract extraction History of bilateral knee arthroplasty History of cardiac catheterization History of coronary artery bypass graft History of hip replacement History of inguinal hernia repair History of lithotripsy History of tonsillectomy Family History Family History Mother Diabetes mellitus Family history of cardiovascular disease Acute myocardial infarction Father Family history of cardiovascular disease Acute myocardial infarction Social History Social History Social History: Surrogate decision maker: Sandra Villanueva, . Code status: Full code. Smoking status: Never smoker Additional smoking assessment comments: Smoked 3 to 4 cigars per day. Alcohol intake: never Substance use: never Additional living arrangements co
[2021-09-09 16:05] LABS: CRP 2.1 mg/dL (<1.0)
[2021-09-09 16:10] LABS: NT Pro B Type Natriuretic Pept 2720 pg/mL (5-100)
[2021-09-09 16:28] LABS: Procalcitonin 0.1 ng/mL
--- NOTE | 2021-09-09 18:33 | ADMGEN ---
This patient, Teofilo Villanueva, was admitted to Medical Room 247-. Patient/family oriented to hospital policies and general routines including ID bracelet, bed and alarms, visiting hours, pain management, procedures, bathroom and other care routines, personal items, smoking policy, room service/diet, and visiting hours. Information on how to activate the Rapid Response Team has been discussed. Patient/Family are encouraged to report perceived risks to care and to ask questions if they do not understand what they are told or what they should do.
[2021-09-09] MEDS: APIXABAN 5 MG TABLET PO (22:44)
[2021-09-09] MEDS: METOPROLOL TARTRATE 50 MG TAB PO (22:44)
[2021-09-10] VITALS (7 sets, daily range): BP systolic 100–135; BP diastolic 51–65; PULSE 90–92; RESP 16; TEMP 36.4–36.7; O2SAT 94–100; BMI 24.7
[2021-09-10 06:30] LABS: Hematocrit 31.3 % (42.0-52.0); Hemoglobin 9.4 g/dL (14.0-18.0); Mean Corpuscular Hemoglobin 32.8 pg (26-34); Mean Corpuscular Volume 109.1 fl (80-100); Mean Platelet Volume 9.8 fl (7.4-10.4); Platelet Count Result 210 k/mm3 (150-375); Red Blood Count 2.87 M/mm3 (4.6-6.20); Red Cell Distribution Width 19.3 % (11.5-14.5); White Blood Count 5.5 K/mm3 (4.5-10.0)
[2021-09-10 06:47] LABS: Anion Gap 2 mmol/L (8-16); Blood Urea Nitrogen 20 mg/dL (9-20); Calcium 8.3 mg/dL (8.4-10.2); Carbon Dioxide 31 mmol/L (22-30); Chloride 103 mmol/L (98-107); Estimated CRCL calculation 52 ml/min; Estimated Glomerular Filt Rate 58; Glucose 100 mg/dL (65-110); Magnesium 2.1 mg/dL (1.6-2.3); Potassium 4.3 mmol/L (3.4-5.0); Sodium 136 mmol/L (137-145)
--- NOTE | 2021-09-10 07:44 | ECHO_ITS ---
Patient Info Name: Teofilo Villanueva Age: 80 years : 1940 Gender: Male Ht: 71 in Wt: 177 lbs BSA: 2.01 m2 HR: 92 bpm BP: 135 / 65 mmHg Heart Rhythm: Indeterminant Technical Quality: Fair Exam Date: 09/10/2021 10:42 AM Exam Location: [facility] Pulmonary Patient Status: Inpatient Admit Date: 09/10/2021 Staff Ordering Physician: Sosa Boothe APRN Brothel Keeper: Kathy Rooney RDCS Attending Provider: Alexis Richardson MD Referring Physician: Tl HIDALGO; Exam Type: CA echo doppler color flow Study Info Indications - sob Complete two-dimensional, color flow and Doppler transthoracic echocardiogram is performed. Summary 1. Complete two-dimensional, color flow and Doppler transthoracic echocardiogram is performed. 2. Normal left ventricular size with moderate concentric hypertrophy. Good systolic function of all segments with an ejection fraction of 55-60% and no focal wall motion abnormalities. Grade 2 diastolic dysfunction is present. 3. Left atrial chamber dimension is severely enlarged. 4. Right atrial chamber dimension is normal. 5. There is mild mitral valve regurgitation. 6. There is moderate aortic valve stenosis with a peak velocity of 220 cm/s, mean gradient of 11 mmHg, and aortic valve area of 1.1 cm2. 7. There is moderate mitral valve stenosis. Mitral valve area by pressure half time was 2.2 cm2. Severe mitral annular calcification. 8. There is mild tricuspid valve regurgitation. 9. Mild pulmonary hypertension, estimated pulmonary arterial systolic pressure is 42 mmHg. 10. Aortic root calcification. 11. Technically difficult study. Left Ventricle Left ventricular chamber dimension is normal. Left ventricular systolic function is normal, estimated at 55-60%. There is moderately increased left ventricular wall thickness. Left ventricular septal wall motion is normal. The left ventricular diastolic function is grade II diastolic dysfunction. Right Ventricle Right ventricular chamber dimension is normal. Right ventricular systolic function is normal. Left Atria Left atrial chamber dimension is severely enlarged. Right Atria Right atrial chamber dimension is normal. Aortic Valve The aortic valve is not well visualized. There is no aortic valve sclerosis. There is moderate aortic valve stenosis with a peak velocity of 220 cm/s, mean gradient of 11 mmHg, and aortic valve area of 1.1 cm2. There is no aortic valve regurgitation. There is mild aortic valve calcification. Pulmonic Valve The pulmonic valve is normal. There is no pulmonic valve stenosis. There is no pulmonic regurgitation. Mitral Valve The mitral valve has normal leaflets. There is moderate mitral valve stenosis. Mitral valve area by pressure half time was 2.2 cm2. Severe mitral annular calcification. There is mild mitral valve regurgitation. Tricuspid Valve The tricuspid valve leaflets are normal. There is no significant tricuspid valve stenosis. There is mild tricuspid valve regurgitation. Mild pulmonary hypertension, estimated pulmonary arterial systolic pressure is 42 mmHg. Pericardium/Pleural The pericardium appears normal. There is no pericardial effusion. Inferior Vena Cava Dilated inferior vena cava with <50% collapse upon inspiration consistent with Empty right atrial pressure, 20 mmHg. Aorta The aortic root size at the sinus of Valsalva is normal. The prox ascending aorta size is normal. Left Ventricular Outflow Tract --
[2021-09-10] MEDS: PANTOPRAZOLE 40 MG TABLET BY MOUTH (08:26)
[2021-09-10] MEDS: APIXABAN 5 MG TABLET PO ×2 (08:26→20:06)
[2021-09-10] MEDS: MULTIVITAMINS /C LUTEIN (CENTRUM SILVER) TABLET *BKC 1 TAB PO (08:26)
[2021-09-10] MEDS: azaTHIOprine 50 MG TABLET 100 MG PO ×2 (08:26→16:36)
--- NOTE | 2021-09-10 09:58 | PCSTNOTE ---
Please refer to the Bedside Swallow Evaluation in the EMR. Please note, silent aspiration cannot be ruled out at bedside.
[2021-09-10] MEDS: METOPROLOL TARTRATE 50 MG TAB PO ×2 (10:14→20:06)
[2021-09-10] MEDS: FUROSEMIDE INJ 40 MG/4 ML VIAL IV PUSH ×2 (10:14→16:36)
--- NOTE | 2021-09-10 10:20 | PM.CNPUL ---
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 Sanderson). Patient had COVID on 08/04/2021 was treated as an outpatient with paxlovid but then required inpatient admission from 08/12-08/17 and was discharged on no oxygen. patient developed left popliteal, posterior tibial and peroneal vein DVT and CT angiogram on 08/13/2021 showed pulmonary embolism in the right lower lobe. He was treated with Eliquis. He was treated with remdesivir and for bacterial infection as well. Overall patient was improving after this until 1 day prior to admission when he tells me he developed shortness of breath with no fever, chills, rigors, wheezing, phlegm production or cough. CT angiogram Compared to 08/13/2021 demonstrates ontinued PE right lower lobe, patchy left greater than right improved infiltrates with a small left pleural effusion. patient now with 1-2 days worsening shortness of breath without evidence of a pulmonary infection. BNP 2720. Patient has been treated with Lasix 40 IV b.i.d. and was given 1 dose of levofloxacin on 09/09. Today he says he is 70% back to normal. He is on 1 L nasal cannula with saturations 97%. Echocardiogram to assess cardiac function. I suspect the patient's hypoxia is more related to fluid overload and agree with aggressive diuresis for now. Patient has no evidence of a bacterial infection with a normal white blood cell count, afebrile, no sputum production, procalcitonin of 0.1, and I will discontinue his levofloxacin. I do not think this is an exacerbation of his interstitial lung disease-NSIP. Discussed with Sosa Boothe Will follow with you. 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 Patterson. NSIP dates back to at least 11/06/2018 within when he had peripheral in lower lobe reticular opacities and mosaic attenuation in the right upper lobe and right middle lobe without bronchiectasis or honeycombing. Last PFTs on 07/17/2021 demonstrated an FEV1 of 65% and a total lung capacity 42%. On 08/04/2021 the patient developed COVID and was treated with Paxil of Advair. Patient was admitted to [facility] on 08/12 through 08 17 and treated with REM de severe given his immunocompromised state. He was on room air. At that time patient was diagnosed with a DVT and right lower lobe PE and his warfarin was switched to Eliquis. He was treated with ceftriaxone and azithromycin. Patient was discharged home and continued to slowly improve until 628 when he developed shortness of breath. He states that this came on quickly and he was feeling fine the day before this. He denied fever, chills, rigors, wheezing, phlegm production, cough or hemoptysis. Patient presented to the emergency room with a white count of 5.4, creatinine 1.2, BNP of 2720, CRP 2.1, procalcitonin 0.1, CT angiogram of the chest showed continued right lower lobe pulmonary embolism with no sign of right ventricular strain, small left pleural effusion patchy consolidation left upper lobe right lower lobe and bilateral patchy ground-glass infiltrates with mild improvement compared to CT on 08/13/2021. Patient was admitted and treated for fluid overload with IV Lasix and pneumonia with levofloxacin. 09/10/2021: Today the patient tells me t
--- NOTE | 2021-09-10 10:41 | PM.IMPN ---
Progress Note: A&P Assessment and Plan (1) Hypoxia: Code(s): R09.02 - Hypoxemia Status: Acute Assessment and Plan: Place in COVID19 isolation precautions, cardiac monitoring, and continuous pulse ox Monitor serum electrolytes, CRP, Lactic acid, troponin, CBC, WBC, temperature curve and follow cultures Oxygen via NC; wean as tolerated. Keep spO2 greater than 91% Patient was initiated on Levaquin Q 24 hours Consulting Pulmonary due to the patient's increased oxygen demand. Patient does not wear oxygen at baseline. GI prophylaxis: PPI Hold IV fluids due to possible fluid volume overload, administering IV Lasix as the patient appears fluid volume overloaded (2) Abnormal finding on lung imaging: Code(s): R91.8 - Other nonspecific abnormal finding of lung field Status: Acute Assessment and Plan: Monitor vital signs, I&Os, neuro status and patient is a fall risk Follow WBC, serum electrolytes, temperature curves and cultures Send sputum cultures and blood cultures Obtain Pneumococcal antigen urine and legionella pneumophila Ag Ur Oxygen via NC; wean as tolerated. Keep SpO2 greater than 88% Hold Gentle IV fluid resuscitation as the patient appears fluid volume overload Levaquin IVPB Q 24 hours DuoNeb q6H and Albuterol q2H PRN CRP mildly elevated 2.1, negative procalcitonin WBC 5.5, continue to re-evaluate may deescalate antibiotics P.r.n. Tylenol, Zofran, and melatonin (3) Congestive heart failure: Code(s): I50.9 - Heart failure, unspecified Status: Acute Assessment and Plan: Monitor vital signs, I&Os, BUN/creatinine, daily weights, neuro status and patient is a fall risk Monitor serum electrolytes, Keep serum Potassium>4 and serum Magnesium>2 and CBC Obtain an Echocardiogram Lasix 40 mg IV q12H (4) Paroxysmal atrial fibrillation: Code(s): I48.0 - Paroxysmal atrial fibrillation Status: Acute Assessment and Plan: Monitor vital signs, I&Os, neuro status, patient is a fall risk and patient is a bleeding risk Monitor PTT, Serum electrolytes, and cbc Keep serum potassium >4 and keep magnesium >2 Monitor anticoagulation therapy Continue Eliquis 5 mg b.i.d. Obtain echocardiogram (5) Chronic anticoagulation: Code(s): Z79.01 - local intermodal truck driver (current) use of anticoagulants Status: Acute Assessment and Plan: Continue Eliquis (6) Hypertension: Code(s): I10 - Essential (primary) hypertension Status: Acute Assessment and Plan: Continue home medications (7) Rheumatoid arthritis: Code(s): M06.9 - Rheumatoid arthritis, unspecified Status: Acute Assessment and Plan: Stable Continue home medications (8) Valvular heart disease: Code(s): I38 - Endocarditis, valve unspecified Status: Acute (9) Pulmonary emboli: Qualifiers: Acute cor pulmonale presence: unspecified Chronicity: unspecified Pulmonary embolism type: unspecified Qualified Code(s): I26.99 - Other pulmonary embolism without acute cor pulmonale Code(s): I26.99 - Other pulmonary embolism without acute cor pulmonale Status: Acute Assessment and Plan: Continue Eliquis for pulmonary embolism that was founded August 13, 2021 to the right lower lobe (10) DVT (deep venous thrombosis): Code(s): I82.409 - Acute embolism and thrombosis of unspecified deep veins of unspecified lower extremity Status: Acute Assessment and Plan: Patient is currently on Eliquis for pulmonary embolism as well as the DVT that was found on 08/13/2021 with a venous Doppler study He has a DVT involving the left popliteal, posterior tibial and peroneal veins. Repeat venous Doppler study and EREN Subjective Date/time seen: 09/10/21 10:41 Patient is alert and oriented. Patient was sitting in a chair with 2 L of oxygen on. Patient denied any acute respiratory distress, Chest pain, nausea, vomiting upset stomach and diarrhea.
--- NOTE | 2021-09-10 13:06 | PCOTNOTE ---
Attempted OT evaluation, patient is currently off the unit for a test. Will follow.
--- NOTE | 2021-09-10 15:19 | PCSTNOTE ---
MODIFIED BARIUM SWALLOW STUDY WILL BE COMPLETED 09/11.
[2021-09-10] MEDS: MELATONIN 5 MG TABLET PO (20:06)
[2021-09-11] VITALS (11 sets, daily range): BP systolic 97–124; BP diastolic 56–69; PULSE 78–99; RESP 16–20; TEMP 36.2–36.6; O2SAT 95–98
[2021-09-11 05:53] LABS: CRP 3.8 mg/dL (<1.0)
--- NOTE | 2021-09-11 06:38 | PM.IMPN ---
Progress Note: A&P Assessment and Plan (1) Hypoxia: Code(s): R09.02 - Hypoxemia Status: Acute Assessment and Plan: Monitor serum electrolytes, CRP, Lactic acid, troponin, CBC, WBC, temperature curve and follow cultures Procalcitonin 0.1, CRP mildly elevated at 3.8 Oxygen via NC; wean as tolerated. Keep spO2 greater than 91% Patient was initiated on Levaquin Q 24 hours Consulting Pulmonary due to the patient's increased oxygen demand. Patient does not wear oxygen at baseline. GI prophylaxis: PPI Hold IV fluids due to possible fluid volume overload, administering IV Lasix as the patient appears fluid volume overloaded Obtain a modified barium swallow to rule out possible silent aspiration. Chest x-ray appears stable pulmonary infiltrates, patient does not have a leukocytosis. He did receive 1 dose of Levaquin (2) Abnormal finding on lung imaging: Code(s): R91.8 - Other nonspecific abnormal finding of lung field Status: Acute Assessment and Plan: Monitor vital signs, I&Os, neuro status and patient is a fall risk Follow WBC, serum electrolytes, temperature curves and cultures Pending sputum cultures and blood cultures Pending Pneumococcal antigen urine and legionella pneumophila Ag Ur Oxygen via NC; wean as tolerated. Keep SpO2 greater than 88% Hold Gentle IV fluid resuscitation as the patient appears fluid volume overload, continue with IV furosemide Levaquin IVPB discontinued as the patient does not have a leukocytosis and recommendations by Pulmonary DuoNeb q6H and Albuterol q2H PRN CRP mildly elevated 3.8, increasing from yesterday. negative procalcitonin WBC 5.5, continue to re-evaluate may deescalate antibiotics P.r.n. Tylenol, Zofran, and melatonin Pending modified barium swallow (3) Congestive heart failure: Code(s): I50.9 - Heart failure, unspecified Status: Acute Assessment and Plan: Monitor vital signs, I&Os, BUN/creatinine, daily weights, neuro status and patient is a fall risk Monitor serum electrolytes, Keep serum Potassium>4 and serum Magnesium>2 and CBC Echocardiogram obtained on 09/10/2021 which revealed an LVEF of 55-60% with grade 2 diastolic dysfunction. Lasix 40 mg IV q12H (4) Paroxysmal atrial fibrillation: Code(s): I48.0 - Paroxysmal atrial fibrillation Status: Acute Assessment and Plan: Monitor vital signs, I&Os, neuro status, patient is a fall risk and patient is a bleeding risk Monitor PTT, Serum electrolytes, and cbc Keep serum potassium >4 and keep magnesium >2 Monitor anticoagulation therapy Continue Eliquis 5 mg b.i.d. (5) Chronic anticoagulation: Code(s): Z79.01 - halfway (current) use of anticoagulants Status: Acute Assessment and Plan: Continue Eliquis (6) Hypertension: Code(s): I10 - Essential (primary) hypertension Status: Acute Assessment and Plan: Continue home medications (7) Rheumatoid arthritis: Code(s): M06.9 - Rheumatoid arthritis, unspecified Status: Acute Assessment and Plan: Stable Continue home medications (8) Valvular heart disease: Code(s): I38 - Endocarditis, valve unspecified Status: Acute (9) Pulmonary emboli: Qualifiers: Acute cor pulmonale presence: unspecified Chronicity: unspecified Pulmonary embolism type: unspecified Qualified Code(s): I26.99 - Other pulmonary embolism without acute cor pulmonale Code(s): I26.99 - Other pulmonary embolism without acute cor pulmonale Status: Acute Assessment and Plan: Continue Eliquis for pulmonary embolism that was founded August 13, 2021 to the right lower lobe (10) DVT (deep venous thrombosis): Code(s): I82.409 - Acute embolism and thrombosis of unspecified deep veins of unspecified lower extremity Status: Acute Assessment and Plan: Patient is currently on Eliquis for pulmonary embolism as well as the DVT that was found on
[2021-09-11] MEDS: azaTHIOprine 50 MG TABLET 100 MG PO ×2 (09:01→17:04)
[2021-09-11] MEDS: APIXABAN 5 MG TABLET PO ×2 (09:01→20:12)
[2021-09-11] MEDS: METOPROLOL TARTRATE 50 MG TAB PO ×2 (09:03→20:12)
[2021-09-11] MEDS: MULTIVITAMINS /C LUTEIN (CENTRUM SILVER) TABLET *BKC 1 TAB PO (09:04)
[2021-09-11] MEDS: FUROSEMIDE INJ 40 MG/4 ML VIAL IV PUSH ×2 (09:04→17:04)
[2021-09-11] MEDS: PANTOPRAZOLE 40 MG TABLET BY MOUTH (09:04)
[2021-09-11 10:54] LABS: Immunochemical Fecal Occult Bl Positive (N)
[2021-09-11 10:55] LABS: IFOB Positive Control Positive
--- NOTE | 2021-09-11 11:06 | PCSTNOTE ---
Modified barium swallow completed and evaluation completed and entered into patient's medical record.
--- NOTE | 2021-09-11 11:22 | PCRCNOTE ---
HOME O2 EVAL COMPLETE, NO REQUIREMENTS
--- NOTE | 2021-09-11 12:34 | PM.PNPUL ---
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 Sanderson). Patient had COVID on 08/04/2021 was treated as an outpatient with paxlovid but then required inpatient admission from 08/12-08/17 and was discharged on no oxygen. patient developed left popliteal, posterior tibial and peroneal vein DVT and CT angiogram on 08/13/2021 showed pulmonary embolism in the right lower lobe. He was treated with Eliquis. He was treated with remdesivir and for bacterial infection as well. Overall patient was improving after this until 1 day prior to admission when he tells me he developed shortness of breath with no fever, chills, rigors, wheezing, phlegm production or cough. CT angiogram Compared to 08/13/2021 demonstrates continued PE right lower lobe, patchy left greater than right improved infiltrates with a small left pleural effusion. 09/10/21 patient now with 1-2 days worsening shortness of breath without evidence of a pulmonary infection. BNP 2720. Patient has been treated with Lasix 40 IV b.i.d. and was given 1 dose of levofloxacin on 09/09. Today he says he is 70% back to normal. He is on 1 L nasal cannula with saturations 97%. Echocardiogram to assess cardiac function. I suspect the patient's hypoxia is more related to fluid overload and agree with aggressive diuresis for now. Patient has no evidence of a bacterial infection with a normal white blood cell count, afebrile, no sputum production, procalcitonin of 0.1, and I will discontinue his levofloxacin. I do not think this is an exacerbation of his interstitial lung disease-NSIP. 09/11 Today the patient tells me he is 80% back to normal. He still has dyspnea on exertion and some swelling. He denies cough, fever, chills, wheezing. Currently is on room air with saturations 96%. His white blood cell count is 5.5. chest x-ray was stable bilateral pulmonary infiltrates and no change since 09/09/2021. Modified barium swallow demonstrates no evidence of aspiration Of note the patient is known to have obstructive sleep apnea with hypoxia followed by his private confectionery maker and in the last progress note on 08/21/21 States a home polysomnogram on 07/13/2021 demonstrated an AHI of 17.7 and the plan was to obtain a CPAP titration. would do home O2 assessment prior to discharge. patient to follow up with Dr. Sanderson as outpatient. Discussed with Sosa Boothe, will sign off, call with questions. Subjective Date/time seen: 09/11/21 12:34 Interval history: 09/10/2021:? 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 Patterson.? NSIP dates back to at least 11/06/2018 within when he had peripheral in lower lobe reticular opacities and mosaic attenuation in the right upper lobe and right middle lobe without bronchiectasis or honeycombing.? Last PFTs on 07/17/2021 demonstrated an FEV1 of 65% and a total lung capacity 42%. ? On 08/04/2021 the patient developed COVID and was treated with Paxil of Advair.? Patient was admitted to [facility] on 08/12? through 08 17 and treated? with REM de severe given his? immunocompromised state.? He was on room air.? At that time patient was diagnosed with a DVT and right lower lobe PE and his warfarin was switched to Eliquis.? He was treated with ceftriaxone and azithromycin.? Patient was discharged home and continued to slowly improve until 628 when he developed shortness of breath.? H
--- NOTE | 2021-09-11 15:11 | WPDCDIQUERY2 ---
CDI Query Clarification Request 09/10 Length Control Tester documented: Hypoxia: ?Code(s): R09.02 - Hypoxemia ?Status:?Acute ?Assessment and Plan: ? 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 Sanderson).? I suspect the patient's hypoxia is more related to fluid overload and agree with aggressive diuresis for now.? Patient has no evidence of a bacterial infection with a normal white blood cell count, afebrile,? no sputum production,? procalcitonin of 0.1,? and I will discontinue his levofloxacin. 09/10 Hospitalist documented: Congestive heart failure: ?Code(s): I50.9 - Heart failure, unspecified ?Status:?Acute ?Assessment and Plan: Monitor vital signs, I&Os, BUN/creatinine, daily weights, neuro status and patient is a fall risk Monitor serum electrolytes, Keep serum Potassium>4 and serum Magnesium>2 and CBC Obtain an Echocardiogram Lasix 40 mg IV q12H Please clarify if diagnosis: CHF (Congestive Heart Failure) has been ruled in or ruled out. If ruled in, please clarify if CHF, (Congestive Heart Failure is Acute, Chronic, Acute on Chronic, other, or unable to determine. If CHF, (Congestive Heart Failure) has been ruled in, please clarify if it is Systolic, Diastolic, Combined, or unable to determine. <Dionne Brito - Last Filed: 09/11/21 15:17> 09/10 Length Control Tester documented: Hypoxia: ?Code(s): R09.02 - Hypoxemia ?Status:?Acute ?Assessment and Plan: ? 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 Sanderson).? I suspect the patient's hypoxia is more related to fluid overload and agree with aggressive diuresis for now.? Patient has no evidence of a bacterial infection with a normal white blood cell count, afebrile,? no sputum production,? procalcitonin of 0.1,? and I will discontinue his levofloxacin. 09/10 Hospitalist documented: Congestive heart failure: ?Code(s): I50.9 - Heart failure, unspecified ?Status:?Acute ?Assessment and Plan: Monitor vital signs, I&Os, BUN/creatinine, daily weights, neuro status and patient is a fall risk Monitor serum electrolytes, Keep serum Potassium>4 and serum Magnesium>2 and CBC Obtain an Echocardiogram Lasix 40 mg IV q12H acute on chronic diastolic heart failure <Sosa Boothe APRN - Last Filed: 09/13/21 11:44> Clarified Diagnosis (1) Acute on chronic congestive heart failure: Code(s): I50.9 - Heart failure, unspecified <Dionne Brito - Last Filed: 09/11/21 15:17> Status: Acute <Dionne Brito - Last Filed: 09/11/21 15:17> Assessment and Plan: Acute on chronic diastolic heart failure Monitor vital signs, I&Os, BUN/creatinine, daily weights, neuro status and patient is a fall risk Monitor serum electrolytes, Keep serum Potassium>4 and serum Magnesium>2 and CBC IV Lasix q.12 hours <Sosa Boothe APRN - Last Filed: 09/13/21 11:44> Assessment and Plan: Acute on chronic diastolic heart failure Monitor vital signs, I&Os, BUN/creatinine, daily weights, neuro status and patient is a fall risk Monitor serum electrolytes, Keep serum Potassium>4 and serum Magnesium>2 and CBC IV Lasix q.12 hours <Sosa Boothe APRN - Last Filed: 09/13/21 11:44>
[2021-09-11] MEDS: MELATONIN 5 MG TABLET PO (20:55)
[2021-09-12] VITALS (8 sets, daily range): BP systolic 100; BP diastolic 57; PULSE 78–96; RESP 20; TEMP 36.4; O2SAT 91–97
[2021-09-12 06:00] LABS: CRP 4.2 mg/dL (<1.0)
--- NOTE | 2021-09-12 06:57 | PM.DS ---
DS: Admitting Diagnosis Discharge Date 09/12/21 Admitting Diagnosis Acute hypoxic respiratory failure Diastolic heart failure Pulmonary embolism DVT DS: Discharge Diagnosis Discharge Diagnosis (1) Hypoxia: Code(s): R09.02 - Hypoxemia Status: Acute Assessment and Plan: Monitor serum electrolytes, CRP, Lactic acid, troponin, CBC, WBC, temperature curve and follow cultures Procalcitonin 0.1, CRP mildly elevated at 3.8 Oxygen via NC; wean as tolerated. Keep spO2 greater than 91% Patient was initiated on Levaquin Q 24 hours Consulting Pulmonary due to the patient's increased oxygen demand. Patient does not wear oxygen at baseline. GI prophylaxis: PPI Hold IV fluids due to possible fluid volume overload, administering IV Lasix as the patient appears fluid volume overloaded Obtain a modified barium swallow to rule out possible silent aspiration. Chest x-ray appears stable pulmonary infiltrates, patient does not have a leukocytosis. He did receive 1 dose of Levaquin (2) Abnormal finding on lung imaging: Code(s): R91.8 - Other nonspecific abnormal finding of lung field Status: Acute Assessment and Plan: Monitor vital signs, I&Os, neuro status and patient is a fall risk Follow WBC, serum electrolytes, temperature curves and cultures Pending sputum cultures and blood cultures Pending Pneumococcal antigen urine and legionella pneumophila Ag Ur Oxygen via NC; wean as tolerated. Keep SpO2 greater than 88% Hold Gentle IV fluid resuscitation as the patient appears fluid volume overload, continue with IV furosemide Levaquin IVPB discontinued as the patient does not have a leukocytosis and recommendations by Pulmonary DuoNeb q6H and Albuterol q2H PRN CRP mildly elevated 3.8, increasing from yesterday. negative procalcitonin WBC 5.5, continue to re-evaluate may deescalate antibiotics P.r.n. Tylenol, Zofran, and melatonin Pending modified barium swallow (3) Congestive heart failure: Code(s): I50.9 - Heart failure, unspecified Status: Acute Assessment and Plan: Monitor vital signs, I&Os, BUN/creatinine, daily weights, neuro status and patient is a fall risk Monitor serum electrolytes, Keep serum Potassium>4 and serum Magnesium>2 and CBC Echocardiogram obtained on 09/10/2021 which revealed an LVEF of 55-60% with grade 2 diastolic dysfunction. Lasix 40 mg IV q12H Diastolic heart failure (4) Paroxysmal atrial fibrillation: Code(s): I48.0 - Paroxysmal atrial fibrillation Status: Acute Assessment and Plan: Monitor vital signs, I&Os, neuro status, patient is a fall risk and patient is a bleeding risk Monitor PTT, Serum electrolytes, and cbc Keep serum potassium >4 and keep magnesium >2 Monitor anticoagulation therapy Continue Eliquis 5 mg b.i.d. (5) Chronic anticoagulation: Code(s): Z79.01 - [facility] (current) use of anticoagulants Status: Acute Assessment and Plan: Continue Eliquis (6) Hypertension: Code(s): I10 - Essential (primary) hypertension Status: Acute Assessment and Plan: Continue home medications (7) Rheumatoid arthritis: Code(s): M06.9 - Rheumatoid arthritis, unspecified Status: Acute Assessment and Plan: Stable Continue home medications (8) Valvular heart disease: Code(s): I38 - Endocarditis, valve unspecified Status: Acute (9) Pulmonary emboli: Qualifiers: Acute cor pulmonale presence: unspecified Chronicity: unspecified Pulmonary embolism type: unspecified Qualified Code(s): I26.99 - Other pulmonary embolism without acute cor pulmonale Code(s): I26.99 - Other pulmonary embolism without acute cor pulmonale Status: Acute Assessment and Plan: Continue Eliquis for pulmonary embolism that was founded August 13, 2021 to the right lower lobe (10) DVT (deep venous thrombosis): Code(s): I82.409 - Acute embolism and thrombosis of unspecified
[2021-09-12] MEDS: METOPROLOL TARTRATE 50 MG TAB PO (08:04)
[2021-09-12] MEDS: APIXABAN 5 MG TABLET PO (08:04)
[2021-09-12] MEDS: FUROSEMIDE INJ 40 MG/4 ML VIAL IV PUSH (08:05)
[2021-09-12] MEDS: azaTHIOprine 50 MG TABLET 100 MG PO (08:05)
[2021-09-12] MEDS: MULTIVITAMINS /C LUTEIN (CENTRUM SILVER) TABLET *BKC 1 TAB PO (08:05)
[2021-09-12] MEDS: PANTOPRAZOLE 40 MG TABLET BY MOUTH (08:05)
[2021-09-13 23:42] LABS: Pneumococcal Antigen Urine Not Detected (Not Detected)
[2021-09-14 23:55] LABS: Legionella pneumophila Ag Ur Not Detected (Not Detected)
== END 2021-09-12 11:40 | disposition home or self-care (01) | DRG 291 ==
LOC: ANHED 15:11 → ANH2MED 16:24
PROVIDERS: Physician Assistant; Admitting Provider Internal Medicine; Emergency Provider Emergency Medicine; Visit Provider Nurse Practitioner Family
DX: I11.0 Hypertensive heart disease with heart failure (principal); I26.99 Other pulmonary embolism without acute cor pulmonale; I50.33 Acute on chronic diastolic (congestive) heart failure; I38 Endocarditis, valve unspecified; I82.432 Acute embolism and thrombosis of left popliteal vein; I82.442 Acute embolism and thrombosis of left tibial vein; I82.452 Acute embolism and thrombosis of left peroneal vein; R09.02 Hypoxemia; R91.8 Other nonspecific abnormal finding of lung field; I48.0 Paroxysmal atrial fibrillation; I25.10 Atherosclerotic heart disease of native coronary artery without angina pectoris; E78.5 Hyperlipidemia, unspecified; I05.0 Rheumatic mitral stenosis; I87.2 Venous insufficiency (chronic) (peripheral); K74.60 Unspecified cirrhosis of liver; G47.33 Obstructive sleep apnea (adult) (pediatric); M06.00 Rheumatoid arthritis without rheumatoid factor, unspecified site; Z96.653 Presence of artificial knee joint, bilateral; Z96.649 Presence of unspecified artificial hip joint; Z91.81 History of falling; Z79.01 Long term (current) use of anticoagulants; Z86.16 Personal history of COVID-19; Z95.2 Presence of prosthetic heart valve; Z98.42 Cataract extraction status, left eye; Z98.41 Cataract extraction status, right eye; Z95.1 Presence of aortocoronary bypass graft; Z90.49 Acquired absence of other specified parts of digestive tract; Z87.11 Personal history of peptic ulcer disease; I25.2 Old myocardial infarction; Z85.828 Personal history of other malignant neoplasm of skin
CPT/HCPCS: 36415; 71045; 71046; 71275; 80048; 80053; 82274; 83735; 83880; 84145; 85025; 85027; 86140; 87040; 87449; 87899; 92610; 92611; 93005; 93306; 93798; 93922; 93970; 94618; 96365; 96366; 97161; 97165; 99285; A9270; G0378; J1940; J1956; Q9967

== ENCOUNTER 2021-10-13 07:09 | Outpatient (CLI) | payer MEDICARE, SELFPAY ==
[2021-10-13 07:31] LABS: Basophils Percent Auto 0.8 % (0.2-1.2); Eosinophils Absolute Auto 0.1 K/mm3 (0-0.3); Eosinophils Percent Auto 1.7 % (0-4.4); Hematocrit 32.3 % (42.0-52.0); Hemoglobin 10.1 g/dL (14.0-18.0); Immature Granulocyte Absolute 0.03 K/mm3 (0.00-0.031); Immature Granulocyte Percent A 0.6 % (0-0.5); Lymphocytes Absolute Auto 0.36 K/mm3 (0.9-3.2); Mean Corpuscular HGB Conc 31.3 g/dl (32-36); Mean Corpuscular Hemoglobin 32.6 pg (26-34); Mean Corpuscular Volume 104.2 fl (80-100); Mean Platelet Volume 9.5 fl (7.4-10.4); Monocytes Absolute Auto 0.8 K/mm3 (0.1-0.6); Monocytes Percent Auto 14.5 % (2.6-8.5); Neutrophils Absolute Auto 3.9 K/mm3 (1.3-6.7); Neutrophils Percent Auto 75.4 % (45.5-73.1); Platelet Count Result 214 k/mm3 (150-375); Red Cell Distribution Width 18.5 % (11.5-14.5); White Blood Count 5.2 K/mm3 (4.5-10.0)
[2021-10-13 07:43] LABS: Alanine Aminotransferase 14 U/L (6-50); Albumin Level 3.7 g/dL (3.5-5.1); Alkaline Phosphatase 95 U/L (38-126); Anion Gap 9 mmol/L (8-16); Aspartate Amino Transferase 25 U/L (17-59); Bilirubin,Total 0.6 mg/dL (0.2-1.3); Blood Urea Nitrogen 27 mg/dL (9-20); Calcium 8.5 mg/dL (8.4-10.2); Carbon Dioxide 29 mmol/L (22-30); Chloride 100 mmol/L (98-107); Estimated Glomerular Filt Rate 58; Glucose 121 mg/dL (65-110); Potassium 4.6 mmol/L (3.4-5.0); Sodium 138 mmol/L (137-145)
== END 2021-10-13 07:10 | disposition home or self-care (01) ==
LOC: ANHLAB 07:13
PROVIDERS: PCP Family Medicine; Visit Provider Internal Medicine Rheumatology
DX: D72.810 Lymphocytopenia (principal); Z79.899 Other long term (current) drug therapy
CPT/HCPCS: 36415; 80053; 85025

== ENCOUNTER 2021-10-20 07:47 | Outpatient (CLI) | payer MEDICARE, SELFPAY ==
[2021-10-20 08:23] LABS: Anion Gap 8 mmol/L (8-16); Blood Urea Nitrogen 27 mg/dL (9-20); Calcium 8.8 mg/dL (8.4-10.2); Carbon Dioxide 26 mmol/L (22-30); Chloride 100 mmol/L (98-107); Estimated Glomerular Filt Rate 53; Glucose 97 mg/dL (65-110); Potassium 4.3 mmol/L (3.4-5.0); Sodium 134 mmol/L (137-145)
[2021-10-20 08:33] LABS: NT Pro B Type Natriuretic Pept 2690 pg/mL (5-100)
== END 2021-10-20 07:48 | disposition home or self-care (01) ==
PROVIDERS: Internal Medicine Cardiovascular Disease; PCP Family Medicine; Visit Provider Family Medicine
DX: I50.9 Heart failure, unspecified (principal)
CPT/HCPCS: 36415; 80048; 83880

== ENCOUNTER 2021-11-04 15:00 | Outpatient (RCR) | payer MEDICARE, SELFPAY ==
[2021-07-07 09:11] VITALS: PULSE 95
[2021-10-20 08:19] LABS: INR 1.7; Prothrombin Time 19.1 Seconds (11.1-14.7)
== END 2021-11-04 23:59 | disposition home or self-care (01) ==
LOC: ANHCPREHAB 15:00
PROVIDERS: PCP Family Medicine; Visit Provider Internal Medicine Cardiovascular Disease
DX: Z95.2 Presence of prosthetic heart valve (principal)
CPT/HCPCS: 36415; 85610; 93798